=== PATIENT | female | born 1950 | race Caucasian/White ===

== ENCOUNTER → 2016-08-14 13:21 | Outpatient (CLI) | payer MEDICARE, BC ==
[2013-09-16 10:22] VITALS: BMI 45.8
[~2016-08-14 13:21] MED LIST: ALLERGY RELIEF; COZAAR50 MG PO; GLUCOPHAGE500 MG PO; GLUCOTROL 5 MG T5 MG PO; K-DUR20 MEQ PO; LISINOPRIL10 MG PO; LOPID600 MG PO; NEURONTIN 300300 MG PO; NEURONTIN600 MG PO; NORCO 10/325 TA1 TA1 PO; PHENERGAN25 M1 PO; STOOL SOFTENER240 MG; XANAX0.5 MG PO; XELODA500 MG PO
== END | disposition home or self-care (01) ==
LOC: D.CT 13:21
DX: C18.3 Malignant neoplasm of hepatic flexure (principal)

== ENCOUNTER → 2016-11-13 10:09 | Outpatient (CLI) | payer MEDICARE, BC ==
[2013-09-16 10:22] VITALS: BMI 45.8
== END | disposition home or self-care (01) ==
LOC: D.CT 10:09
DX: C18.3 Malignant neoplasm of hepatic flexure (principal); C78.7 Secondary malignant neoplasm of liver and intrahepatic bile duct; D72.819 Decreased white blood cell count, unspecified; D69.6 Thrombocytopenia, unspecified; C78.01 Secondary malignant neoplasm of right lung

== ENCOUNTER 2016-12-01 07:50 | Outpatient (CLI) | payer MEDICARE, BC ==
[~2016-12-01] VITALS: Ht 160 cm; Wt 107.3 kg
[2016-12-01 08:37] LABS: HEMATOCRIT 39.5 % (36.0-48.0); MCH 32.2 pg (26.0-34.0); MCHC 32.9 g/dL (31.0-37.0); MCV 97.8 fL (80.0-100.0); MEAN PLATELET VOLUME 11.7 fL (7.4-10.4); RBC 4.04 10x6/uL (4.00-5.40); RDW 17.3 % (11.5-14.5); WBC 2.7 10x3/uL (4.8-10.8)
[2016-12-01 08:40] LABS: INR 1.11 (0.85-1.17); PLATELET COUNT 58 10x3/uL (130-400); PROTIME 14.2 SECONDS (11.6-15.0)
[2016-12-01 08:41] LABS: APTT 29.1 SECONDS (22.8-39.4)
[2016-12-01 08:43] LABS: CALC OSMOLALITY 290 mosm/kg (275-300); CALCIUM 8.5 mg/dL (8.5-10.1); CARBON DIOXIDE 29.6 mmol/L (21.0-32.0); CHLORIDE - SERUM 109 mmol/L (98-107); CREATININE - SERUM 0.7 mg/dL (0.6-1.3); GLUCOSE 181 mg/dL (74-106); POTASSIUM - SERUM 4.2 mmol/L (3.5-5.1); SODIUM 142 mmol/L (136-145); UREA NITROGEN 20 mg/dL (7-18); eGFR NON AFRICAN AMERICAN 89 mL/min (90-120)
[2016-12-01 08:55] LABS: BASOPHILS 1 % (0-2); LYMPHOCYTES 41 % (15-50); MONOCYTES 4 % (2-11); NEUTROPHILS 54 % (40-80); PLATELET ESTIMATE DECREASED
--- NOTE | 2016-12-01 09:07 | NUR ---
0900-NOTIFIED DR. SIMENTAL ABOUT PLATELET COUNT OF 58, NO NEW ORDERS RECEIVED.
[2016-12-01] MEDS ORDERED: ALDACTONE25 MG PO (09:14)
[2016-12-01] MEDS ORDERED: FUROSEMIDE20 MG PO (09:15)
[2016-12-01] MEDS ORDERED: TIROSINT25 MCG PO (09:16)
[2016-12-01 09:22] VITALS: BP 139/69; Ht 160 cm; Wt 107.3 kg
--- NOTE | 2016-12-01 12:08 | NUR ---
1020--ALL VITAL SIGNS CHARTED ON POST PROCEDURE VITAL SIGN SHEET ON CHART. IVANA HINES
--- NOTE | 2016-12-01 14:12 | NUR ---
1400--IV DC'D, PT UP TO DRESS AT THIS TIME. IVANA HINES
--- NOTE | 2016-12-01 14:33 | NUR ---
1410--DISCHARGE INSTRUCTIONS GIVEN, PT VERBALIZES UNDERSTANDING. PT OFF UNIT VIA ALVIN. IVANA HINES
== END 2016-12-01 14:10 | disposition home or self-care (01) ==
LOC: D.OPS 07:50
PROVIDERS: General Practice
DX: C78.01 Secondary malignant neoplasm of right lung (principal); C19 Malignant neoplasm of rectosigmoid junction; J90 Pleural effusion, not elsewhere classified; Z01.812 Encounter for preprocedural laboratory examination

== ENCOUNTER → 2017-02-05 13:38 | Outpatient (CLI) | payer MEDICARE, BC ==
[2016-12-01 09:22] VITALS: BMI 41.9
[~2017-02-05 13:38] MED LIST changes: +ALDACTONE25 MG PO; +FUROSEMIDE20 MG PO; +TIROSINT25 MCG PO
== END | disposition home or self-care (01) ==
LOC: D.CT 13:38
DX: C78.01 Secondary malignant neoplasm of right lung (principal)

== ENCOUNTER 2017-05-05 21:39 | Inpatient (IN) | payer MEDICARE, BC ==
[~2017-05-05] VITALS: Ht 160 cm; Wt 118.7 kg
--- NOTE | ~2017-05-05 | HEMODYNAMI ---
PATIENT:OLESYA ANDRADE MEDICAL RECORD: [id number] : 54 LOCATION:D.MS Pro2207 ADMISSION DATE: 05/06/17 Generatedon:05/21/201715:28 Patient name: OLESYA ANDRADE Patient #: [id number] SSN: DO B: 1950 Date of study: 05/21/2017 Page: Of Hemodynamic Procedure Report Patient Data Patient Demographics Procedure consent was obtained First Name: OLESYA Gender: Female Last Name: RAYMOND : 1950 Middle Initial: KATERINE Age: 66 year(s) Patient #: [id number] Race: Unknown Additional ID: [id number] Contact details [address]: [address] [place] [address] State: [place] City: [place] Zip code: [address] Past Medical History Allergies: No known allergies Admission Admission Data Admission Date: 05/06/2017 Admission Time: 1:25 Room #: D.2207 Weight (lbs.): 261 Weight (kg.): 118.39 Procedure Procedure Types Cath Procedure Peripheral Cath Diagnostic Procedure Cath Peripheral Miscellaneous Pleurex Pleurex Cath Place w/ Imaging Procedure Description Procedure Date Procedure Date: 05/21/2017 Procedure Start Time: 14:47 Procedure Staff Name Function Julian Kirk MD Performing Physician Samina Matias RN Nurse Roderick Roberts RT Monitor Hannah Arriaza RT Scrub Procedure Data Cath Procedure Fluoroscopy Diagnostic fluoroscopy Total fluoroscopy Time: 0.7 time: 0.7 min min Diagnostic fluoroscopy Total fluoroscopy dose: 24 dose: 24 mGy mGy Procedure Medications Medication Administration Route Dosage Ancef (1Gm/50ml NS) I.V.P.B 2 g Fentanyl I.V. 50 mcg Versed I.V. 1 mg Versed I.V. 1 mg Fentanyl I.V. 50 mcg Hemodynamics Rest Heart Rate: 93 (bpm) Snapshots Pre Cath Intra NCS Post Cath Vital Signs Time Heart Resp SPO2 etCO2 NIBP (mmHg) Rhythm Pain Sedation Rate (ipm) (%) (mmHg) Status Level (bpm) 14:20:49 93 12 99 17.1 124/56(88) NSR 0 (11) 10(A) , No pain 14:25:01 22 96 23.8 108/85(95) NSR 0 (11) 10(A) , No pain 14:29:13 98 26.8 127/62(92) NSR 0 (11) 10(A) , No pain 14:34:12 98 9 19.4 Measuring NSR 0 (11) 10(A) , No pain 14:35:01 95 24 23.1 144/57(118) NSR 0 (11) 10(A) , No pain 14:39:05 86 7 95 24.6 121/107(113) NSR 0 (11) 10(A) , No pain 14:43:19 87 98 11.2 94/37(53) NSR 0 (11) 10(A) , No pain 14:47:31 88 98 27.6 73/34(54) NSR 0 (11) 10(A) , No pain 14:51:37 88 21 23.1 52/35(42) NSR 0 (11) 10(A) , No pain 14:54:58 89 5 29 72/33(56) NSR 0 (11) 10(A) , No pain 14:58:22 3 96 26.8 80/34(69) NSR 0 (11) 10(A) , No pain 15:02:32 88 22 96 31.3 83/34(53) NSR 0 (11) 10(A) , No pain 15:05:06 89 97 29.8 80/34(53) NSR 0 (11) 10(A) , No pain 15:09:14 88 20 97 32.1 84/43(67) NSR 0 (11) 10(A) , No pain 15:13:22 86 20 98 31.3 87/44(62) NSR 0 (11) 10(A) , No pain 15:17:33 85 19 96 34.3 82/39(57) NSR 0 (11) 10(A) , No pain 15:21:44 84 21 98 32.8 88/37(57) NSR 0 (11) 10(A) , No pain 15:25:51 84 21 98 32.1 96/48(69) NSR 0 (11) 10(A) , No pain Medications Time Medication Route Dose Verified Delivered Reason Notes Effectiven ess by by 14:49:43 Ancef I.V.P.B 2 g Julian Haas Per (1Gm/50ml Reagan Matias RN protocol NS) 14:50:22 Fentanyl I.V. 50 [place] Samina [place] [facility] [place] Matias [place] sedation 14:50:35 Versed I.V. 1 mg Julian Samina for Reagan Matias RN sedation 14:53:50 Versed I.V. 1 mg Julian Samina for Reagan Matias RN sedation 14:53:59 Fentanyl I.V. 50 Julian Samina [place] [facility] [place] Matias RN sedation Procedure Log Time Note 13:05:12 Patient Weight : 261 lbs 13:22:39 Time tracking: Regular hours 13:22:54 Plan of Care:Hemodynamics will remain stable., Cardiac rhythm will remain stable., Comfort level will be maintained., Respiratory function will remain adequate., Patient/ family verbilizes understanding of procedure., Procedure tolerated without complication., Recovers from procedure without complications.. 13:23:01 Signed procedure consent form obtained from patient. 13:23:08 H&P Date Dictated: 05/21/2017 Within 30 days and on chart.. 13:23:09 Pre-procedure instructions explained to patient. 13:23:10 Pre-op teaching completed and patient verbalized understanding. 13:23:12 Family in waiting room. 13:23:15 Patient NPO since Midnight. 13:23:27 Patient allergic to No known allergies 13:23:31 Is the patient allergic to Iodine/contrast media? No. 13:23:35 Is patient on blood thinner?No 13:23:39 Patient diabetic? Yes. 13:23:42 If diabetic: On Metformin? Yes 13:23:45 If on Metformin: Last Dose? 05/21/2017 13:23:48 - 13::56 ----Pre-sedation anethsthesia assessment.---- 13:24:00 Previous problem with sedation/anesthesia? No ? 13:24:04 Snore? Yes 13:24:07 Sleep apnea? Yes 13:24:10 Deviated septum? No 13:24:13 Opens mouth fully? Yes 13:24:15 Sticks out tongue? Yes 13:24:20 Airway obstruction? No ? 13:24:25 Dentures? No ? 13:24:28 - 13:24:37 IV patent on arrival in port with 0.9% NaCl at O. 13:24:47 Right chest area was prepped with chlora-prep and draped in sterile fashion 13:24:49 Alarms reviewed by Kathrine Morgan 13:24:50 Sharps counted by scrub and verified by RAnnikaNAnnika 13:24:51 - 13:24:57 Use device set IR Diagnostic 13::58 Sterile Angiographic Pack opened to sterile field. 13:24:59 Bag Decanter opened to sterile field. 13:25:18 PLEURX PLEURAL cath system opened to sterile field. 13:25:25 - 13:44:24 ECG and BP/O2 sat monitors applied to patient. 14:19:37 Vital chart was started 14:19:38 Baseline sample Acquired. 14:19:44 Rhythm: sinus rhythm 14:45:02 Full Disclosure recording started 14:45:16 Physician arrived 14:45:16 --------ALL STOP TIME OUT------ 14:45:17 Final Timeout: patient, procedure, and site verified with staff and physician. All members of the team are in agreement. 14:45:24 Right chest site verified by team. 14:45:29 Sedation plan: IV Moderate Sedation Versed, Fentanyl 14:47:02 Procedure started. 14:47:10 Local anesthetic to Chest area with Lidocaine 1% by Julian Kirk MD.INITIAL ACCESS ONLY 14:49:43 Ancef (1Gm/50ml NS) 2 g I.V.P.B was administered by Samina Matias RN; Per protocol; 14:50:22 Fentanyl 50 mcg I.V. was administered by Samina Matias RN; for sedation ; 14:50:35 Versed 1 mg I.V. was administered by Samina Matias RN; for sedation; 14:53:50 Versed 1 mg I.V. was administered by Samina Matias RN; for sedation; 14:53:59 Fentanyl 50 mcg I.V. was administered by Samina Matias RN; for sedation ; 15:09:04 DILATOR, VESSEL 12/20 opened to sterile field. 15:13:54 STOPCOCK 3-WAY LARGE BORE opened to sterile field. 15:14:40 Dermabond Pen opened to sterile field. 15:21:05 600 cc drained 15:22:59 Procedure ended.(Physican Out) 15:24:29 Fluoroscopy time 00.70 minutes. 15:24:44 Fluoroscopy dose: 24 mGy 15:24:44 Flurop Dose total: 24 15:24:46 Sharps counted by scrub and verified by R.N. 15:24:49 Insertion/operative site no bleeding no hematoma. 15:24:56 Post-op/insertion site Right Chest area dressed using a 4 x 4 and Tegaderm. 15:25:07 Post procedure rhythm: unchanged. 15:25:14 Post Chest area:stable 15:28:09 Post procedure instruction explained to patient.Patient verbalizes understanding. 15:28:10 Procedure and supply charges have been captured, reviewed, submitted an d are correct. 15:28:13 Report given to Med/Surg. 15:28:17 Patient transfered to Med/Surg with Bed. 15:28:40 Vital chart was stopped Device Usage Item Name Manufacture Quantity Catalog Hospital Part Current Minimal Lot# / Number Charge Number Stock Stock Serial# Code Sterile 1 [id number] 5 Angiographic Health Pack Bag Decanter Microtek 1 [id number] [id number] [id number] 5 [employer] PLEURX CareFusion 1 [id number] 5 PLEURAL cath system DILATOR, [employer] 1 [id number] 5 [id number] [facility]ESSEL 07/11 [facility] [employer] 1 [id number] 6301 [id number] 5 [id number] 3-WAY LARGE BORE Dermabond Ethicon 1 [id number] [id number] 5 Pen Signature Audit [place] Stage Time Signature Unsigned Intra-Procedure 05/21/2017 Roderick 3:28:38 PM Alejandra RT (R) (CV) Signatures Monitor : Roderick Signature : Alejandra RT Date : Time : [address] [address]
[2017-05-05 22:41] LABS: BASOPHILS 0.3 % (0-2); EOSINOPHILS 0.6 % (0-7); HEMOGLOBIN 11.3 g/dL (12-16); IMMATURE GRANULOCYTES 0.3 % (0-5); LYMPHOCYTES 19.6 % (15-50); MCH 31.9 pg (26.0-34.0); MCHC 32.3 g/dL (31.0-37.0); MCV 98.9 fL (80.0-100.0); MONOCYTES 9.9 % (2-11); NEUTROPHILS 69.3 % (40-80); RBC 3.54 10x6/uL (4.00-5.40); RDW 18.3 % (11.5-14.5); WBC 3.2 10x3/uL (4.8-10.8)
[2017-05-05 22:42] LABS: PLATELET COUNT 41 10x3/uL (130-400)
[2017-05-05 22:55] LABS: ALBUMIN 2.3 g/dL (3.4-5.0); ANION GAP 12.9 mmol/L (8-16); BILIRUBIN - TOTAL 1.69 mg/dL (0.2-1.3); CALCIUM 8.3 mg/dL (8.5-10.1); CREATININE - SERUM 0.9 mg/dL (0.6-1.3); POTASSIUM - SERUM 3.9 mmol/L (3.5-5.1); PROTEIN - SERUM 6.9 g/dL (6.4-8.2)
[2017-05-05 23:31] LABS: APPEARANCE CLEAR (CLEAR); BILIRUBIN NEGATIVE (NEGATIVE); COLOR YELLOW (YELLOW); GLUCOSE 1000 mg/dL (NEGATIVE); KETONE NEGATIVE (NEGATIVE); NITRITE NEGATIVE (NEGATIVE); PROTEIN NEGATIVE (NEGATIVE); RED CELLS - URINE 0-5 /hpf (0-5); SPECIFIC GRAVITY 1.015 (1.005-1.020); UROBILINOGEN NORMAL (NORMAL); WHITE CELLS - URINE RARE /hpf (0-5)
[2017-05-06] VITALS (25 sets, daily range): BP systolic 91–165; BP diastolic 40–109; BMI 43.5
--- NOTE | 2017-05-06 02:00 | NUR ---
RECEIVED PATIENT FROM ER VIA BED, PATIENT IS SEDATED AND AROUSES TO STIMULI. VSS. SON AT BEDSIDE. VSS. SEE ADMISSION ASSESSMENT FOR DETAILS.
--- NOTE | 2017-05-06 02:15 | NUR ---
DR VEGA CALLED FOR UPDATE ON PATIENT, UPDATE PROVIDED, NEW ORDERS RECEIVED.
--- NOTE | 2017-05-06 03:00 | NUR ---
DERMATOLOGICAL SURGEON NOTIFIED ABOUT NEW ORDERS/MEDS NEEDING PULLED.
--- NOTE | 2017-05-06 04:35 | NUR ---
PATIENT UNABLE TO FOLLOW COMMANDS AND TAKE MEDICATIONS. DROPPED NGT PER ORDER. PLACEMENT VERIFIED WITH AIR BOLUS. PATIENT PULLING AT TUBE, SOFT WRIST RESTRAINTS PLACED. SON BACK AT BEDSIDE AND INFORMED.
[2017-05-06 05:50] LABS: HEMOGLOBIN A1C 8.6 % (4.8-6.0)
[2017-05-06 05:56] LABS: APTT 30.7 SECONDS (22.8-39.4); INR 1.24 (0.85-1.17); PROTIME 15.5 SECONDS (11.6-15.0)
--- NOTE | 2017-05-06 06:00 | NUR ---
PATIENT BECAME TACHYCARDIC, RR 40, 02 SAT 80%, DID NOT IMPROVE WITH INCREASE OF NC, PLACED ON OXYMIZER 10L WITH LITTLE IMROVEMENT. LUNG SOUNDS WET, DR VEGA PAGED, ORDERS FOR LASIX RECEIVED. BLOOD GAS ORDERED.
[2017-05-06 06:06] LABS: T4 THYROXIN - FREE 1.25 ng/dL (0.76-1.46); THYROID STIMULATING HORMONE 9.78 uIU/mL (0.36-3.74)
--- NOTE | 2017-05-06 06:15 | NUR ---
DR VEGA AT BEDSIDE, BLOOD GASES REVEIWED. NEW ORDERS RECEIVED.
--- NOTE | 2017-05-06 07:22 | NUR ---
DR GEORGES CONSULTED.
[2017-05-06 09:33] LABS: ALBUMIN 2.3 g/dL (3.4-5.0); ALKALINE PHOSPHATASE 121 U/L (46-116); ALT (SGPT) 44 U/L (10-68); CALCIUM 7.5 mg/dL (8.5-10.1); CARBON DIOXIDE 23.3 mmol/L (21.0-32.0); CHLORIDE - SERUM 107 mmol/L (98-107); POTASSIUM - SERUM 3.8 mmol/L (3.5-5.1); PROTEIN - SERUM 6.3 g/dL (6.4-8.2); SODIUM 141 mmol/L (136-145)
[2017-05-06 09:37] LABS: CALC OSMOLALITY 284 mosm/kg (275-300); CREATININE - SERUM 0.3 mg/dL (0.6-1.3); GLUCOSE 158 mg/dL (74-106); UREA NITROGEN 15 mg/dL (7-18); eGFR NON AFRICAN AMERICAN > 90 mL/min (90-120)
--- NOTE | 2017-05-06 10:48 | NUR ---
FAMILY IN ROOM AT THIS TIME VISITING WITH DR DAVIS. NO ACUTE DISTRESS NOTED. WILL CONTINUE PLAN OF CARE.
--- NOTE | 2017-05-06 12:02 | HP ---
PATIENT: OLESYA ANDRADE MEDICAL RECORD: [id number] ACCOUNT: [id number] LOCATION:[facility] D.2312 : 54 ADMISSION DATE: 05/06/17 HISTORY AND PHYSICAL EXAMINATION REASON FOR ADMISSION: Confusion, vomiting, diarrhea and general malaise. 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 She had previous ablation of the lung metastases twice, underwent a VATS procedure in 2013 of the right lower lobe. She has been on single agents Cyramza and CEA has declined under Dr. Ba direction. The patient also has a history of CHU and cirrhosis. She become ill 5 days prior to admission with nausea and vomiting. The family attempted to get her to come into the office, but she would not do so. She apparently fell last week and son states she had an MRI of her brain with results pending. Nonetheless, became weaker and came into the Emergency Room early this morning, very confused. Her serum ammonia level returned at over 100. She also had elevated lactate level with concern for sepsis was entertained. Her chest x-ray showed decreased volume in the right lower lobe from previous lower lobectomy, no obvious pneumonia. For that reason, the patient went through the fluid resuscitation for lactic acidosis protocol per Dr. Henderson, was transferred to the ICU. She was hypotensive initially and responded to fluid challenge. At approximately 5:00 a.m., she became tachypneic and anxious and dropped her sats in the 80s; requiring a 15 liter supplementation, reaching to 90% O2 sat range. She was tachycardic as well. The patient was given 40 of Lasix IV push, now diuresing. The family denies any new cough, says she was poorly compliant with her diabetes, but did had some low-grade fever. PAST MEDICAL HISTORY: 1. T3, N1, M0 mucinous adenocarcinoma of the lung, status post left hemicolectomy and right lower lobectomy and lung metastases, history of progression of the right apical lung nodule, CT, July 2015. Currently on treatment with Cyramza. 2. Postmenopausal, type 2 diabetes mellitus, history of ascites, recurrent right pleural effusion post-thoracentesis 2015, drop foot on the right, hypothyroidism, adult obstructive sleep apnea, morbid obesity, splenomegaly, CHU with cirrhosis of liver, portal hypertension, thrombocytopenia, chronic neuropathic pain in the right lower extremity. PAST SURGICAL HISTORY: Right lower lobectomy, cholecystectomy; thoracentesis, right lung; colon resection. HOME MEDICATIONS: Cozaar 50 mg a day, Aldactone 25 mg b.i.d., Lasix 20 mg p.o. q.a.m., levothyroxine 25 mcg p.o. q.a.m., Glucotrol 5 mg daily, metformin 1000 mg b.i.d. with meals. ALLERGIES: None known. SOCIAL HISTORY: , supportive family, living locally. 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 REVIEW OF SYSTEMS: GENERAL: General malaise and low-grade fever for the last 5 days with poor appetite. HISTORY AND PHYSICAL [id number] OLESYA ANDRADE: No recent visual change or sinus congestion, no sore throat. RESPIRATORY: Increasing shortness of breath the last 24 hours, worse on admission to the hospital. No sputum production or cough. CARDIAC: No history of cardiac disease or chest pain. GASTROINTESTINAL: Nausea with vomiting for the last week and intermittent diarrhea without hematemesis or hematochezia. Denies abdominal pain. GENITOURINARY: Has mild incontinence. No dysuria. GYNECOLOGIC: No vaginal bleeding. ENDOCRINE: Denies polyuria. PSYCHIATRIC: Admits to mild depressed mood per family. PHYSICAL EXAMINATION: VITAL SIGNS: Heart rate 135, blood pressure is 160/110, temperature is 99 degrees Fahrenheit, respirations were 37. GENERAL: The patient is disoriented, still in the ICU with NG tube in place, on supplemental O2 with sat of 90%, currently on 15 liters. HEENT: Eyes are clear, nonicteric. Pupils were reactive. Oropharynx was dry mucous membranes. NG tube is in the nose. CHEST: Shows crackles in the bases with increased respiratory rate. No wheezes. HEART: Tachycardic. ABDOMEN: Morbidly obese, but nontender. EXTREMITIES: 2+ bipedal and pretibial edema of the knees bilaterally. NEUROLOGICAL: The patient is disoriented to person, place, and time. No motor deficits are appreciated. INTEGUMENT: No rash. LABORATORY DATA: Shows a white count of 3200 with 69 polys, 19 lymphs, H&H is 11.3 and 35.0 respectively, platelet count of 41,000. Potassium is 3.9, sodium 134, BUN and creatinine 10 and 0.9. Glucose was 440 initially, now 177 post-insulin. A1c is 8.6, lactic acid is 2.3. Calcium was 8.3, magnesium 1.8, phosphorus low at 1.8. Ammonia 109, alkaline phosphatase 177. AST is 51, bilirubin is 1.69. TSH is high at 9.78. CEA is 6.5. DIAGNOSTIC DATA: Chest x-ray shows volume loss in the right base, difficult to assess due to body habitus. No infiltrate is appreciated. ABG shows pH of 7.381, pO2 is 66, pCO2 of 34 on 15 liters oxymizer. Urine shows 2+ blood. INR is 1.24. Serum ketones were negative. ASSESSMENT: 1. Lactic acidosis. 2. 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 Diabetes mellitus, uncontrolled; morbid obesity, obstructive sleep apnea, respiratory failure due to fluid overload. PLAN: The patient has responded nicely to IV Lasix currently, sat are improving 96% range. Follow up chest x-ray does not show acute infiltrate at this time. Continue ICU care, NG tube for lactulose. We will consult her oncologist, Dr. Ba and pulmonary consult as well. Further workup pending clinical course. TRANSINT:[id number] Voice Confirmation ID: [id number] DOCUMENT ID: [id number] HISTORY AND PHYSICAL [id number] OLESYA ANDRADE TIMOTHY MD at 1202 CC: [id number] DICTATION DATE: 05/06/17 08 PLASTIC SURGERY MANAGER: 05/06/17 1007 ADM IN [facility] [address] [place] [address]
--- NOTE | 2017-05-06 12:43 | NUR ---
NO ACUTE DISTRESS NOTED. NO CHANGE. FAMILY AT BEDSIDE. WILL CONTINUE PLAN OF CARE.
[2017-05-06 13:24] LABS: APTT 31.9 SECONDS (22.8-39.4); INR 1.32 (0.85-1.17); PROTIME 16.3 SECONDS (11.6-15.0)
--- NOTE | 2017-05-06 14:42 | NUR ---
PT NOTED TO BE MORE COHERENT. PT STILL CONFUSED TO TIME AND SITUATION BUT PT IS ABLE TO STATE NAME AND TOWN AT THIS TIME. NO ACUTE DISTRESS NOTED. REORIENTATION PROVIDED. TURNED Q2H. WILL CONTINUE PLAN FO CARE.
--- NOTE | 2017-05-06 15:10 | NUR ---
NOTED LARGE FORMED BOWEL MOVEMENT, CONTINENT, AT THIS TIME. PATTY CARE AND NEVES CARE PROVIDED VIA TOTAL ASSIST. NO ACUTE DISTRESS NOTED. WILL CONTINUE PLAN OF CARE.
--- NOTE | 2017-05-06 16:03 | NUR ---
CONSULTS NOTED FOR DR DONOHUE AND DR PANDYA. DR PANDYA NOTIFIED OF CONSULT, ORDERS RECIEVED. DR GARCÍA PAGED AT THIS TIME. WAITING FOR CALLBACK.
--- NOTE | 2017-05-06 17:05 | NUR ---
SPOKEN WITH DR DONOHUE, NOTIFIED OF CONSULT. NO ORDERS RECIEVED.
--- NOTE | 2017-05-06 18:44 | NUR ---
AMMONIA LEVEL OF [address] PANDYA NOTIFIED AND HAS PLACED ORDERS.
--- NOTE | 2017-05-06 19:15 | NUR ---
ASSESSMENT COMPLETE. NSR SHOWING ON MONITOR. RR WHEEZE NOTED BILATERALLY IN UPPER LOBES; DIMINISHED BILATERALLY IN LOWER LOBES. PT CONFUSED TO TIME AND LOCATION. NGT TO LIS. RESTRAINTS UNDONE; PT BEHAVIOR CALM; APPROPRIATE. PERRLA. HYPERACTIVE BOWEL SOUNDS X4. FLATULANCE NOTED. DENIES N/V.
--- NOTE | 2017-05-06 20:00 | NUR ---
FAMILY AT BEDSIDE. UPDATE GIVEN. QUESTIONS ANSWERED.
--- NOTE | 2017-05-06 23:10 | NUR ---
REASSESSMENT COMPLETE. NO ACUTE CHANGES FROM PREVIOUS ASSESSMENT. DOCUMENTED UNDER ASSESSMENT. WILL CONTINUE TO MONITOR.
[2017-05-07] VITALS (24 sets, daily range): BP systolic 95–137; BP diastolic 32–79; Ht 160 cm; Wt 118.7 kg
--- NOTE | 2017-05-07 01:30 | NUR ---
PT RESTING; EYES CLOSED. VSS. NO DISTRESS NOTED. CALL LIGHT IN REACH. WILL CONTINUE TO MONITOR.
--- NOTE | 2017-05-07 02:45 | NUR ---
PT ASSISTED TO BEDPAN. SMEAR OF FECES. UNABLE TO COLLECT SAMPLE. PT CLEANED. COMPLETE LINEN CHANGE. NEVES CATH LEAKING; CHECKED BULB; 8CC WATER. 2CC ADDED. NEVES CARE COMPLETE.
--- NOTE | 2017-05-07 03:08 | NUR ---
REASSESSMENT COMPLETE. NO ACUTE CHANGES FROM PREVIOUS ASSESSMENT. SEE FLOW SHEET FOR DETAILS. CALL LIGHT IN REACH. WILL CONTINUE TO MONITOR.
[2017-05-07 04:20] LABS: BASOPHILS 0.2 % (0-2); EOSINOPHILS 0.2 % (0-7); HEMATOCRIT 32.6 % (36.0-48.0); HEMOGLOBIN 10.2 g/dL (12-16); IMMATURE GRANULOCYTES 0.3 % (0-5); LYMPHOCYTES 8.9 % (15-50); MCH 31.6 pg (26.0-34.0); MCHC 31.3 g/dL (31.0-37.0); MCV 100.9 fL (80.0-100.0); MONOCYTES 7.8 % (2-11); NEUTROPHILS 82.6 % (40-80); RBC 3.23 10x6/uL (4.00-5.40); RDW 19.4 % (11.5-14.5); WBC 6.6 10x3/uL (4.8-10.8)
[2017-05-07 04:22] LABS: PLATELET COUNT 30 10x3/uL (130-400)
[2017-05-07 04:30] LABS: INR 1.45 (0.85-1.17); PROTIME 17.6 SECONDS (11.6-15.0)
[2017-05-07 04:43] LABS: ALBUMIN 1.9 g/dL (3.4-5.0); ANION GAP 12.8 mmol/L (8-16); BILIRUBIN - TOTAL 1.96 mg/dL (0.2-1.3); CALCIUM 7.1 mg/dL (8.5-10.1); CHOL - HDL RATIO 2.6 ratio (2.3-4.1); LDL-HDL RATIO 1.3 ratio (1.5-3.5); MAGNESIUM - SERUM 1.5 mg/dL (1.8-2.4); PHOSPHOROUS 4.2 mg/dL (2.5-4.9); POTASSIUM - SERUM 3.8 mmol/L (3.5-5.1); PROTEIN - SERUM 5.7 g/dL (6.4-8.2)
[2017-05-07 04:45] LABS: CREATININE - SERUM 1.4 mg/dL (0.6-1.3)
[2017-05-07 04:49] LABS: D-DIMER-QUANTITATIVE 11.12 ug/mLFEU (0.20-0.54)
--- NOTE | 2017-05-07 05:06 | NUR ---
FAMILY AT BEDSIDE. UPDATE GIVEN. QUESTIONS ANSWERED.
--- NOTE | 2017-05-07 05:40 | NUR ---
DECREASED OXYMIZER TO 10L. O2 SAT 96%
--- NOTE | 2017-05-07 08:27 | NUR ---
LINENS WET WITH URINE. LINENS CHANGED AND CHECKED FC FOR PATENCY. CT CONTRAST TAKEN BY MOUTH. DR VEGA HERE ON ROUNDS. O2 2L NC APPLIED. PT C/O OXYMIZER.
--- NOTE | 2017-05-07 15:24 | NUR ---
* How many steps to enter\exit or inside your home? 2 0 * PCP Dr. Anne 0 * Pharmacy [facility] [address] 0 * Preadmission Environment Home with Family 0 * ADLs Independent 0 * Equipment CPAP Glucometer Rolling Walker Wheelchair 0 * List name and contact numbers for known caregivers / representatives who currently or will assist patient after discharge: Spouse - Los [phone] Son - Nik (RN @ [employer]) [phone] Son- Gm [phone] ROGERS Bae (RN at [employer]') [phone] Sister - Carolyn Hernandez [phone] 0 * Can the patient safely return to the preadmission environment? Yes 0 * Has this patient been hospitalized within the prior 30 days at any hospital? No Patient Name: OLESYA ANDRADE Admission Status: Elective Accout number: [id number] Admission Date: 05-06-2017 : 1950 Admission Diagnosis: Attending: RM ANNE Current LOS: 1 Primary Insurance: MEDICARE A & B Discharge Planning Comments: CM met with spouse, Los & sisterCarolyn, to assess dc plans/needs. Los reports patient was independent with all ADL's prior to admission. She will use a WC when going on shopping trips to craft fairs, but otherwise is independent with mobility. She has a walker at home & a home CPAP but doesn't use either. At dc, plan is for patient to return home. Needs unknown at present time. CM will follow & assist as needed. Vocational Guidance Counselor: Loraine Tan
--- NOTE | 2017-05-07 15:45 | NUR ---
PT INC OF STOOL. STOOL TAKEN TO LAB. BATHED AND LINENS CHANGED.
--- NOTE | 2017-05-07 19:15 | NUR ---
ASSESSMENT COMPLETE. S1S2. NSR SHOWING ON MONITOR. PT ON 2L VIA NC; O2 SAT 96%. ENTERIC ISOLATION PRECAUTIONS. RADIAL AND PEDAL PULSES PALPATED. TRACE EDEMA NOTED TO LOWER EXTREMITIES. CONFUSION NOTED. PT ABLE TO MAKE POSITION CHANGES WITH MINIMAL ASSISTANCE. PERRLA. ABD ROUNDED; TENDER. HYPERACTIVE BOWEL SOUNDS X4.
--- NOTE | 2017-05-07 19:50 | NUR ---
PT REMOVED NASAL CANNULA; 02 SAT DECREASED INTO LOW 70'S. REATTACHED NC; O2 SAT RETURNED WNL. EDUCATED PT ON RISKS OF REMOVING NC.
--- NOTE | 2017-05-07 20:30 | NUR ---
FAMILY AT BEDSIDE. UPDATE GIVEN. QUESTIONS ANSWERED.
--- NOTE | 2017-05-07 22:45 | NUR ---
PT HAD MODERATE BM; DIARRHEA. PT CLEANED; LINENS CHANGED. NEW GOWN PROVIDED.
--- NOTE | 2017-05-07 23:10 | NUR ---
REASSESSMENT COMPLETE. NO ACUTE CHANGES FROM PREVIOUS ASSESSMENT. WILL CONTINUE TO MONITOR.
[2017-05-08] VITALS (24 sets, daily range): BP systolic 100–132; BP diastolic 37–66
--- NOTE | 2017-05-08 00:27 | NUR ---
SPOKE WITH FAMILY. UPDATE GIVEN. QUESTIONS ANSWERED.
--- NOTE | 2017-05-08 03:30 | NUR ---
REASSESSMENT COMPLETE. NO ACUTE CHANGES FROM PREVIOUS ASSESSMENT. WILL CONTINUE TO MONITOR.
--- NOTE | 2017-05-08 03:55 | NUR ---
PT HAD MEDIUM BM; LIQUID DIARRHEA. PT CLEANED; LINENS CHANGED.
[2017-05-08 04:42] LABS: BASOPHILS 0.3 % (0-2); EOSINOPHILS 1.2 % (0-7); HEMATOCRIT 31.1 % (36.0-48.0); HEMOGLOBIN 9.9 g/dL (12-16); IMMATURE GRANULOCYTES 0.3 % (0-5); LYMPHOCYTES 19.4 % (15-50); MCH 31.7 pg (26.0-34.0); MCHC 31.8 g/dL (31.0-37.0); MCV 99.7 fL (80.0-100.0); MONOCYTES 16.1 % (2-11); NEUTROPHILS 62.7 % (40-80); RBC 3.12 10x6/uL (4.00-5.40); RDW 19.4 % (11.5-14.5)
[2017-05-08 04:43] LABS: WBC 3.4 10x3/uL (4.8-10.8)
[2017-05-08 04:44] LABS: PLATELET COUNT 27 10x3/uL (130-400)
[2017-05-08 04:56] LABS: ALBUMIN 1.8 g/dL (3.4-5.0); ANION GAP 13.6 mmol/L (8-16); BILIRUBIN - DIRECT 0.61 mg/dL (0.00-0.30); BILIRUBIN - INDIRECT 0.89 mg/dL (0.00-1.00); BILIRUBIN - TOTAL 1.5 mg/dL (0.2-1.3); CARBON DIOXIDE 23.9 mmol/L (21.0-32.0); POTASSIUM - SERUM 3.5 mmol/L (3.5-5.1); PROTEIN - SERUM 5.2 g/dL (6.4-8.2)
[2017-05-08 04:59] LABS: APTT 35.8 SECONDS (22.8-39.4); CALCIUM 6.8 mg/dL (8.5-10.1); INR 1.32 (0.85-1.17); PROTIME 16.3 SECONDS (11.6-15.0)
--- NOTE | 2017-05-08 05:45 | NUR ---
NO FAMILY/VISITORS DURING VISITATION.
--- NOTE | 2017-05-08 06:29 | NUR ---
PT AAO. CONCENT FOR CT GUIDED THORACENTESIS OBTAINED.
--- NOTE | 2017-05-08 08:10 | NUR ---
I.R. NURSE HERE THIS AM, PT IS NPO FOR THORACENTESIS. DR VEGA HERE AND DR PANDYA HERE THIS AM. DR VEGA SPOKE TO FAMILY THIS AM. T&CM FOR PLTS THIS AM DONE.
--- NOTE | 2017-05-08 19:15 | NUR ---
REPORT RECEIVED AND CARE ASSUMED. INITIAL SHIFT ASSESSMENT COMPLETED SEE FLOWSHEET. PT ABLE TO ASSIST WITH TURNING AND REPOSITIONING. IVF AND LINES ARE LABELED AND ARE CURRENT. WILL CHANGE PER HOSPITAL POLICY. ALL ALARMS VERIFIED AND SET. PT IS AAOX4 NEURO STATUS INTACT
--- NOTE | 2017-05-08 20:00 | NUR ---
SPOUSE AT BEDSIDE VISITIN FREELY WITH PT
--- NOTE | 2017-05-08 21:45 | NUR ---
HS MEDS GIVEN WITHOUT DIFFICULTY IN SWALLOWING. PT REFUSED LACTULOSE VERBALIZED GOOD UNDERSTANDING OF INDICATIONS FOR MEDICATION AND CONT TO REFUSE. MEDS RETURNED. HS SNACK PROVIDED.
--- NOTE | 2017-05-08 22:41 | NUR ---
rapid strep sample collected and sent for analysis
--- NOTE | 2017-05-08 23:01 | NUR ---
STREP RESULTS REVIEWED AND PT NOTIFIED, SHIFT REASSESSMENT COMPLETED WITH NO SIGNIFICANT CHANGES
[2017-05-09] VITALS (24 sets, daily range): BP systolic 110–1328; BP diastolic 52–81
--- NOTE | 2017-05-09 01:00 | NUR ---
PT SLEEPING RESP REG AND NONLABORED AT THIS TIME. VSS
--- NOTE | 2017-05-09 03:00 | NUR ---
SHIFT REASSESSMENT COMPLETED NOTE SOME INSPIRATORY WHEEZING IN LEFT UPPER LOBE. PT AWAKE SAT UP IN BED AND THEN LINENS CHANGED AND PT TOTALLY REPOSITIONED IN AN EFFORT TO MAKE HER MORE COMFORTABLE. PT STATES SHE FELT MUCH BETTER AND PROMPTLY WENT TO SLEEP. SPO2 REMAINED UNCHANGED. VSS
--- NOTE | 2017-05-09 03:30 | NUR ---
RADIOLOGY TECHS AT BEDSIDE FOR AM PCXR. PT TOLERATED WELL
[2017-05-09 04:49] LABS: BASOPHILS 0 % (0-2); EOSINOPHILS 2.3 % (0-7); HEMATOCRIT 31.7 % (36.0-48.0); HEMOGLOBIN 9.9 g/dL (12-16); IMMATURE GRANULOCYTES 0.3 % (0-5); LYMPHOCYTES 29.4 % (15-50); MCH 30.9 pg (26.0-34.0); MCHC 31.2 g/dL (31.0-37.0); MCV 99.1 fL (80.0-100.0); MEAN PLATELET VOLUME 11.2 fL (7.4-10.4); MONOCYTES 12.5 % (2-11); NEUTROPHILS 55.5 % (40-80); RDW 19.2 % (11.5-14.5)
[2017-05-09 04:50] LABS: PLATELET COUNT 33 10x3/uL (130-400)
[2017-05-09 04:56] LABS: INR 1.22 (0.85-1.17); PROTIME 15.3 SECONDS (11.6-15.0)
[2017-05-09 05:03] LABS: ALBUMIN 1.8 g/dL (3.4-5.0); ALKALINE PHOSPHATASE 64 U/L (46-116); ALT (SGPT) 31 U/L (10-68); BILIRUBIN - DIRECT 0.42 mg/dL (0.00-0.30); BILIRUBIN - INDIRECT 0.68 mg/dL (0.00-1.00); CALC OSMOLALITY 285 mosm/kg (275-300); CARBON DIOXIDE 24.4 mmol/L (21.0-32.0); CHLORIDE - SERUM 108 mmol/L (98-107); CREATININE - SERUM 0.8 mg/dL (0.6-1.3); GLUCOSE 161 mg/dL (74-106); POTASSIUM - SERUM 3.3 mmol/L (3.5-5.1); PROTEIN - SERUM 5.3 g/dL (6.4-8.2); SODIUM 140 mmol/L (136-145); UREA NITROGEN 24 mg/dL (7-18); eGFR NON AFRICAN AMERICAN 76 mL/min (90-120)
[2017-05-09 05:04] LABS: CALCIUM 6.8 mg/dL (8.5-10.1)
--- NOTE | 2017-05-09 05:30 | NUR ---
K+ 3.3 PT GIVEN ORAL K+ PER ORDER. TOLERATED WELL FOLLOWING ELECROLYTE PROTOCOL. REPEAT K+ AT 10:45AM ORDER ENTERED
--- NOTE | 2017-05-09 06:07 | NUR ---
PT ASLEEP AT THIS TIME. HAS BEEN AWAKE FOR A COUPLE OF HOURS BUT SLEPT VERY WELL FOR SEVERAL HOURS EASILY AWAKING AND QUICKLY RETURNING TO SLEEP THIS SHIFT
--- NOTE | 2017-05-09 14:36 | NUR ---
NUTRITION F/U CHART REVIEWED. PT ON ADA DIET, TOLERATING PER MD NOTE. +DIARRHEA. NOTE POSSIBLE MOVE TO FLOOR. RD FOLLOWING
--- NOTE | 2017-05-09 16:11 | NUR ---
CONSENT FOR COMPUTERIZED TOMOGRAPHY RIGHT THORCENTESIS SIGNED BY AT Pt REQUEST QUESTIONS ANSWERED. EXPLAINED PROCEDURE TO SON ON PHONE AND DR. VEGA NOTIFIED OF PROCEDURE.
--- NOTE | 2017-05-09 18:40 | NUR ---
PATIENT UP TO CHAIR AND BSC, BECOMES VERY SHORT OF BREATH WITH WHEEZING, IMPROVES AFTER 30 MIN DESATS INTO UPPER 80% INCREASED OXYGEN TO 3 LITERS THEN TURN IT BACK DOWN TO 2 LITERS AFTER PULSE OX UP IN THE 'S. SEVERAL SMALL LIQUID BROWN STOOLS TODAY. NEVES CATH SECURE TO RIGHT LEG DRAINING DARK TESSIE URINE. IV RIGHT INFUSA PORT SITE WITHOUT REDNESS OR DRAINAGE INFUSING NS AT 75 ML HOUR. ABD LARGE SOFT WITH BOWEL SOUNDS PRESENT. DIMINSHED LUNG SOUNDS RIGHT SIDE
--- NOTE | 2017-05-09 19:30 | NUR ---
Report received and care assumed. Initial shift assessment completed see flowsheet. Pt asleep upon entering room easily awaken. Denies pain, needs. IVF and lines are labeled and dated. All are current. Alarms verified and set.
--- NOTE | 2017-05-09 20:00 | NUR ---
Family at bedside questions answered update given. discussed thoracentesis scheduled for 05/10/17
--- NOTE | 2017-05-09 21:00 | NUR ---
Pt refused lactulose. Family at bedside and aware of this
--- NOTE | 2017-05-09 22:30 | NUR ---
pt up to bsc note gait steady only stand by assist required
--- NOTE | 2017-05-09 23:45 | NUR ---
PT ASSISTED BACK TO BED GAIT STEADY CONTINENT OF SMALL LOOSE STOOL. PATTY CARE AND F/C CARE DONE. PT REQUIRES ASSISTANCE WITH REPOSTIONING HIGHER IN BED DUE TO ACTIVITY INTOLERANCE BUT IS ABLE TO TURN SELF AND DO MAJOR BODY REPOSTIONING. CONTINUE TO MONITOR PER STANDARD ICU PROTOCOL
--- NOTE | 2017-05-09 23:53 | NUR ---
PT NPO AT THIS TIME FOR PROCEDURE, SIGN ON DOOR
[2017-05-10] VITALS (25 sets, daily range): BP systolic 86–156; BP diastolic 56–102
--- NOTE | 2017-05-10 01:00 | NUR ---
Patient sitting up on side of bed, c/o dyspnea. O2 sat 94% on 2L via NC, scattered wheeze noted bilateral upper with diminished mid and lower. Patient denies pain or other needs at this time, all VSS and will continue to monitor.
--- NOTE | 2017-05-10 03:05 | NUR ---
Reassessment completed per flowsheet, patient resting with HOB @ 45 degrees and eyes closed. Patient AO x4, calm and cooperative. S1/S2 noted NSR on telemetry with HR 85, rhythmic and regular. Breathing is slightly shallow with dyspnea on exertion with O2 sat 96%, scattered wheeze noted bilateral upper with diminished mid and lower. Full ROM all extremities with weakness noted, all pulses palpable with cap refill < 3 sec. No further needs at this time, all VSS and will continue to monitor.
[2017-05-10 04:31] LABS: BASOPHILS 0 % (0-2); EOSINOPHILS 2.8 % (0-7); HEMATOCRIT 34.2 % (36.0-48.0); HEMOGLOBIN 11.1 g/dL (12-16); IMMATURE GRANULOCYTES 0.3 % (0-5); LYMPHOCYTES 27.5 % (15-50); MCH 31.9 pg (26.0-34.0); MCHC 32.5 g/dL (31.0-37.0); MCV 98.3 fL (80.0-100.0); MONOCYTES 10.7 % (2-11); NEUTROPHILS 58.7 % (40-80); RBC 3.48 10x6/uL (4.00-5.40); RDW 19.1 % (11.5-14.5); WBC 3.3 10x3/uL (4.8-10.8)
[2017-05-10 04:33] LABS: PLATELET COUNT 35 10x3/uL (130-400)
[2017-05-10 04:48] LABS: INR 1.18 (0.85-1.17); PROTIME 14.9 SECONDS (11.6-15.0)
[2017-05-10 04:55] LABS: ALBUMIN 2.1 g/dL (3.4-5.0); ALKALINE PHOSPHATASE 76 U/L (46-116); ALT (SGPT) 33 U/L (10-68); BILIRUBIN - DIRECT 0.46 mg/dL (0.00-0.30); BILIRUBIN - INDIRECT 0.84 mg/dL (0.00-1.00); CALC OSMOLALITY 283 mosm/kg (275-300); CALCIUM 7.4 mg/dL (8.5-10.1); CARBON DIOXIDE 22.9 mmol/L (21.0-32.0); CHLORIDE - SERUM 108 mmol/L (98-107); CREATININE - SERUM 0.7 mg/dL (0.6-1.3); GLUCOSE 187 mg/dL (74-106); POTASSIUM - SERUM 3.4 mmol/L (3.5-5.1); PROTEIN - SERUM 5.9 g/dL (6.4-8.2); SODIUM 139 mmol/L (136-145); eGFR NON AFRICAN AMERICAN 89 mL/min (90-120)
--- NOTE | 2017-05-10 05:00 | NUR ---
AM labs collected without difficulty, K+ replacement initiated. No c/o at this time, all VSS and will continue to monitor.
[2017-05-10 05:02] LABS: UREA NITROGEN 16 mg/dL (7-18)
--- NOTE | 2017-05-10 07:00 | NUR ---
REC'D CARE OF PT. A&O X3. DENIES NEEDS. DENIES PAIN. C/O SOB. DISCUSSED SCHEDULED THORANCENTESIS. TEACHING DONE ABOUT EXPECTED RESULTS.
--- NOTE | 2017-05-10 08:27 | NUR ---
FAMILY AT BEDSIDE. UPDATED.
--- NOTE | 2017-05-10 10:33 | NUR ---
REASSESSMENT COMPLETED PER FLOW SHEET.
--- NOTE | 2017-05-10 10:50 | NUR ---
INCONTINENT OF STOOL. SMALL BROWN SEMIFORMED STOOL. PERICARE PERFORMED. LINENS CHANGED.
--- NOTE | 2017-05-10 10:50 | NUR ---
YAZAN WITH PT GETTING OOB TO CHAIR.
--- NOTE | 2017-05-10 11:04 | NUR ---
UP IN CHAIR. DENIES NEEDS.
--- NOTE | 2017-05-10 12:38 | CN ---
PATIENT NAME:OLESYA NG MEDICAL RECORD: [id number] : 54 LOCATION:[facility] ADMIT DATE: 05/06/17 ACCOUNT: [id number] CONSULTING PHYSICIAN: KAMI NGUYEN MD REFERRING PHYSICIAN: RM VEGA MD DATE OF CONSULTATION: 05/09/2017 DIAGNOSES: 1. Sepsis. 2. Metastatic cancer. HISTORY OF PRESENT ILLNESS: Ms. Ng presents with sepsis syndrome. We were asked to see her regarding possible endocarditis. She had a 2D echo done. Valvular structures are very well visualized. There is no evidence of valvular abnormalities or endocarditis on 2D echo. PHYSICAL EXAMINATION: GENERAL APPEARANCE: Well-nourished, well-developed, appears stated age. Level of distress, comfortable. PSYCHIATRIC: Mental status, alert, normal affect. Orientation, oriented to time, place and person. EYES: Lids and conjunctiva, noninjected. No discharge, no pallor. ENT: Lips, teeth, gums, normal dentition. Oropharynx, no cyanosis, no pallor. NECK: Carotid arteries, bilateral normal upstroke, no bruits, no thrills. JUGULAR VEINS: No jugular venous pressure or distention. CERVICAL LYMPH NODES: Nontender, nonenlarged. THYROID: Not enlarged. Nontender. No nodules. LUNGS: Respiratory effort, unlabored. CHEST: Normal curvature. No thoracic deformity. No chest wall tenderness. Percussion, resonant. Auscultation, clear. No wheezes, no rales, no rhonchi. CARDIOVASCULAR: Precordial exam, nondisplaced. No heaves or pericardial thrills. Rate and rhythm, regular. Heart sounds, normal S1, normal S2. No S3, no gallop, no rub. Systolic murmur, not heard. Diastolic murmur, not heard. EXTREMITIES: No cyanosis, no edema. Peripheral pulses, full and equal in all extremities, except as noted. No bruits appreciated. ABDOMEN: Soft, nondistended. Normal aorta. No bruit. Nontender. No masses. Liver, nontender, no hepatomegaly. Spleen, nontender, no splenomegaly. MUSCULOSKELETAL: No joint tenderness. No joint swelling. No erythema. NEUROLOGICAL: Normal gait, normal strength, normal tone. SKIN: Warm and dry. REVIEW OF SYSTEMS: The patient reports easy bruising but reports no swollen glands. The patient reports no fever, no night sweats, no significant weight gain, no significant weight loss. No significant exercise tolerance. The patient reports no dry eyes, no irritation, no vision change. Patient reports no difficulty hearing and no ear pain. Patient reports no frequent nose bleeds or nose and sinus problems. Patient reports on arm pain on exertion. No shortness of breath while lying down. No history of heart murmur. Patient reports no cough, no wheezing or coughing up blood. Patient reports no abdominal pain, no vomiting. Normal appetite. No diarrhea and not vomiting blood. No nausea and no constipation. Patient reports no incontinence. No difficulty urinating. No hematuria. No increased frequency. Patient reports no muscle aches. No weakness, no arthralgias, no back pain. No swelling of the extremities. Patient reports no abnormal mole, no jaundice, no rashes. Reports no loss of consciousness. No weakness and no numbness. No seizures, dizziness, CONSULT REPORT [id number] VINCENT,OLESYA KATERINE or headaches. The patient reports no depression, no sleep disturbance, feeling safe in a relationship and no alcohol abuse. Patient reports on fatigue. Reports no runny nose or sinus pressure. No itching, no hives, and no frequent sneezing. OVERALL IMPRESSION: On 2D echo, excellent visualization of the valves. There is no evidence of endocarditis. Do not think transesophageal echo is needed at this point. TRANSINT:[id number] Voice Confirmation ID: [id number] DOCUMENT ID: [id number] KAMI NGUYEN MD at 1238 CC: [id number] DICTATION DATE: 05/09/17 110 SURPLUS PROPERTY DISPOSAL AGENT: 05/09/17 1223 [facility] [place] [id number] [place] [id number]
--- NOTE | 2017-05-10 14:05 | NUR ---
REMAINS UP TO CHAIR. HELPING WITH BATH AT HER REQUEST.
--- NOTE | 2017-05-10 14:28 | NUR ---
SITTING ON SOB. DENIES NEEDS.
--- NOTE | 2017-05-10 14:53 | NUR ---
FROM SOB TO BEDSIDE COMMODE.
--- NOTE | 2017-05-10 15:15 | NUR ---
FROM BEDSIDE COMMODE TO BED. HAD SMALL BROWN SEMIFORMED STOOL. PERICARE PERFORMED BY HER .
--- NOTE | 2017-05-10 16:36 | NUR ---
REMIANS AT BEDSIDE ASSISTING WITH TRAY.
--- NOTE | 2017-05-10 17:39 | NUR ---
RESTING WITH EYES CLOSED. VSS.
--- NOTE | 2017-05-10 19:10 | NUR ---
Received patient resting in bed with eys open, assessment completed per flowsheet. Patient AO x4, calm and cooperative. Eyes PERRLA @ 4mm with brisk response, sclera is white. S1/S2 noted NSR on telemetry with HR 91, rhythmic and regular. Breathing is slightly shallow with exertional dyspnea on 2L via NC with O2 sat 96%, expiratory wheeze noted bilateral upper and mid with diminished lower. Abdomen is obese and soft with bowel sounds active x4, non-tender. James secured in place, slight flavio urine noted. Full ROM all extremities with trace swelling/weakness noted, all pulses palpable with cap refill < 3 sec. R upper chest infusaport dressing CDI, patent with fluids infusing. Patient denies pain or other needs at this time, all VSS and will continue to monitor.
--- NOTE | 2017-05-10 21:00 | NUR ---
Patient sitting up in bed with at bedside, all HS meds given without difficulty. Dr Ba at [facility], orders given to transfuse 1 unit platelets at 0100 10 and recheck with AM labs. Orders verified, will continue to monitor.
--- NOTE | 2017-05-10 23:05 | NUR ---
Reassessment completed per flowsheet, patient sitting up in bed resting with eyes closed. S1/S2 noted NSR on telemetry with HR 92, rhytmic and regular. Breathing is shallow with exertional dyspnea and O2 sat 96%, expiratory wheeze noted bilateral upper and mid with diminished lower. All pulses palpable with cap refill < 3 sec, skin warm/dry to touch. patient denies pain or other needs at this time, all VSS and will continue to monitor.
[2017-05-11] VITALS (28 sets, daily range): BP systolic 105–158; BP diastolic 8–75
--- NOTE | 2017-05-11 01:00 | NUR ---
Patient resting in bed with eyes closed, breathing is slightly shallow on 2L via NC with O2 sat 97%. No s/s of distress, no pain or other needs at this time. Will continue to monitor
--- NOTE | 2017-05-11 02:00 | NUR ---
1 unit platelets infusing per verbal orders from Dr Ba. Will recheck with AM labs, and give 2nd unit if < [address] Granda.
--- NOTE | 2017-05-11 03:00 | NUR ---
Reassessment completed per flowsheet, patient sitting up in bed with eyes closed. Patient AO x4, calm and cooperative. S1/S2 noted NSR on telemetry with HR 88, rhythmic and regular. Breathing is slightly shallow with exertional dyspnea and O2 sat 95%, wheeze noted bilateral upper and mid with diminished lower. All pulses palpable with cap refill < 3 sec, skin warm/dry to touch. no further needs at this time, all VSS and will continue to monitor.
[2017-05-11 04:16] LABS: BASOPHILS 0.3 % (0-2); EOSINOPHILS 2.9 % (0-7); HEMATOCRIT 33.5 % (36.0-48.0); HEMOGLOBIN 10.6 g/dL (12-16); IMMATURE GRANULOCYTES 0.3 % (0-5); LYMPHOCYTES 31.6 % (15-50); MCH 31.2 pg (26.0-34.0); MCHC 31.6 g/dL (31.0-37.0); MCV 98.5 fL (80.0-100.0); MEAN PLATELET VOLUME 10.7 fL (7.4-10.4); MONOCYTES 10.5 % (2-11); NEUTROPHILS 54.4 % (40-80); PLATELET COUNT 60 10x3/uL (130-400); RDW 18.9 % (11.5-14.5); WBC 3.8 10x3/uL (4.8-10.8)
[2017-05-11 04:30] LABS: ALBUMIN 2.1 g/dL (3.4-5.0); ALKALINE PHOSPHATASE 85 U/L (46-116); ALT (SGPT) 27 U/L (10-68); BILIRUBIN - TOTAL 1.41 mg/dL (0.2-1.3); CALC OSMOLALITY 288 mosm/kg (275-300); CALCIUM 7.5 mg/dL (8.5-10.1); CARBON DIOXIDE 25.6 mmol/L (21.0-32.0); CHLORIDE - SERUM 110 mmol/L (98-107); CREATININE - SERUM 0.6 mg/dL (0.6-1.3); GLUCOSE 164 mg/dL (74-106); POTASSIUM - SERUM 3.5 mmol/L (3.5-5.1); PROTEIN - SERUM 6.3 g/dL (6.4-8.2); SODIUM 143 mmol/L (136-145); UREA NITROGEN 12 mg/dL (7-18); eGFR NON AFRICAN AMERICAN > 90 mL/min (90-120)
--- NOTE | 2017-05-11 05:00 | NUR ---
Chlorhexidine bath given, patient tolerated well. Platelet >50 with AM labs, no more platelets given per orders. Will notify IR in AM about results, no further needs at this time and will continue to monitor.
--- NOTE | 2017-05-11 08:00 | NUR ---
DR. ACOSTA HERE. PROPOFOL STOPPED.
--- NOTE | 2017-05-11 08:37 | NUR ---
Patient Name: OLESYA ANDRADE Encounter No: [id number] : 1950 Primary Insurance: MEDICARE A & B DCP follow-up note: Patient and family in agreement with discharge plan. No changes to plan. Case management will follow and assist as needed. Loraine Tan
--- NOTE | 2017-05-11 09:42 | NUR ---
NUTRITION F/U CHART REVIEWED. PT CURRENTLY NPO FOR PROCEDURE. NOTE POSSIBLE MOVE TO FLOOR. WILL MONITOR DIET ADVANCEMENT, PO INTAKE. RD FOLLOWING
--- NOTE | 2017-05-11 09:45 | NUR ---
TO X-RAY FOR THORACENTESIS.
--- NOTE | 2017-05-11 11:00 | NUR ---
RETURN FROM XRAY VIA BED. CONNECTED BACK TO MONITOR AND VS OBTAINED.
[2017-05-11 12:24] LABS: PROTEIN - BODY FLUID 0.8 G/DL
[2017-05-11 14:56] LABS: EOS BF 2 %; MACROPHAGES BF 21 %; MESOTHELIALS BF 3 %; NEUT - BF 21 %
--- NOTE | 2017-05-11 19:30 | NUR ---
RECEIVED CARE OF PT, ASSESSMENT PER FLOWSHEET. PT ALERT AND ORIENTED X 4, SITTING UP IN BED IN NO APPARENT DISTRESS, PPP, NEVES CATH PATENT, 02 AT 4L VIA NC, RT UPPER BACK DRESSING NOTED CDI, ABLE TO REPOSITION SELF INDEPENDENTLY FOR THE MOST PART, HR ST AT A RATE OF 103 ON MONITOR, DENIES ANY NEEDS AT THIS TIME, WILL MONITOR.
--- NOTE | 2017-05-11 20:25 | NUR ---
DR BANSAL PAGED PER PT REQUEST REGARDING LASIX, ORDER RECEIVED.
--- NOTE | 2017-05-11 21:40 | NUR ---
PT , DAYRON IN FOR VISITATION. UPDATE PROVIDED, ICE WATER PER REQUEST, BOTH DENY ANY NEEDS AT THIS TIME.
--- NOTE | 2017-05-11 23:15 | NUR ---
REASSESSMENT PER FLOWSHEET, NO ACUTE CHANGES NOTED AT THIS TIME. ASSISTED PT TO CHAIR PER REQUEST WITH MINIMAL HELP. TABLE CLOSE, CALL LIGHT IN REACH, DENIES ANY OTHER NEEDS, WILL CONT TO MONITOR.
[2017-05-12] VITALS (20 sets, daily range): BP systolic 104–146; BP diastolic 52–85
--- NOTE | 2017-05-12 01:50 | NUR ---
ASSISTED PT FROM CHAIR TO BED, PULLED UP AND SUPPORTED WITH PILLOWS. CALL LIGHT IN REACH, BED LOW, VSS.
--- NOTE | 2017-05-12 03:30 | NUR ---
REASSESSMENT PER FLOWSHEET, NO ACUTE CHANGES NOTED AT THIS TIME, VSS CONT POC.
--- NOTE | 2017-05-12 04:07 | NUR ---
PT REFUSED XRAY THIS AM. 05/12/2017.
[2017-05-12 04:46] LABS: BASOPHILS 0.3 % (0-2); EOSINOPHILS 2.9 % (0-7); HEMATOCRIT 31.6 % (36.0-48.0); IMMATURE GRANULOCYTES 0.3 % (0-5); LYMPHOCYTES 26.7 % (15-50); MCH 31.3 pg (26.0-34.0); MCHC 31.6 g/dL (31.0-37.0); MCV 99.1 fL (80.0-100.0); MEAN PLATELET VOLUME 11.5 fL (7.4-10.4); MONOCYTES 13.8 % (2-11); PLATELET COUNT 57 10x3/uL (130-400); RBC 3.19 10x6/uL (4.00-5.40); RDW 19.2 % (11.5-14.5); WBC 3.4 10x3/uL (4.8-10.8)
[2017-05-12 05:32] LABS: ALBUMIN 1.9 g/dL (3.4-5.0); ALKALINE PHOSPHATASE 85 U/L (46-116); ALT (SGPT) 25 U/L (10-68); CALC OSMOLALITY 283 mosm/kg (275-300); CALCIUM 7.6 mg/dL (8.5-10.1); CARBON DIOXIDE 25.1 mmol/L (21.0-32.0); CHLORIDE - SERUM 109 mmol/L (98-107); CREATININE - SERUM 0.7 mg/dL (0.6-1.3); GLUCOSE 203 mg/dL (74-106); POTASSIUM - SERUM 3.3 mmol/L (3.5-5.1); PROTEIN - SERUM 5.6 g/dL (6.4-8.2); SODIUM 140 mmol/L (136-145); UREA NITROGEN 10 mg/dL (7-18); eGFR NON AFRICAN AMERICAN 89 mL/min (90-120)
--- NOTE | 2017-05-12 05:40 | NUR ---
NO VISITORS PRESENT AT THIS TIME, PT RESTING SITTING UP IN BED IN NO APPARENT DISTRESS, VSS, CONT TO MONITOR.
--- NOTE | 2017-05-12 09:55 | NUR ---
AWAKES EASILY TO VERBAL STIMULI. ALERT SKIN WARM AND DRY. RESTING WITH EYES CLOSED. AT BEDSIDE ASSISTING HER WITH BREAKFAST. NEVES CATH PATENT. RIGHT INFUSAPORT CONNECTED TO NS AT 75 ML HOUR. MONITOR SR. NO DISTRESS
--- NOTE | 2017-05-12 10:48 | NUR ---
SITTING UP IN BED READING NEWSPAPER
--- NOTE | 2017-05-12 17:46 | NUR ---
ORDERS RECEIVED TO TRANSFER TO FLOOR. PATIENT IS REALLY WANTING A SHOWER. AT BEDSIDE. ASSIST WITH PATEINT CARE. UP IN CHAIR AT BEDSIDE WITH ASSISTANCES OF NURSE AND . STILL WEAK WEAK WITH UNSTEADY GAIT. NEW IV TUBING PLACE. NEVES CATH PATENT. PATIENT DOES NOT WANT NEVES CATH OUT AT THIS TIME. MONITOR SR. DENIES PAIN. DRY COUGH FREQ.
--- NOTE | 2017-05-12 19:15 | NUR ---
RESUMED CARE OF PT, ASSESSMENT PER FLOWSHEET. PT ALERT AND ORIENTED X 4, SITTING UP IN CHAIR IN NO APPARENT DISTRESS WITH AT BEDSIDE. HR SR AT A RATE OF 91, PPP, NS INFUSING AT 75 CC/HR PER RT CHEST PORT-DRESSING CDI, NEVES CATH PATENT WITH TESSIE URINE IN TUBING. ICE WATER PROVIDED PER REQUEST, DENIES ANY OTHER NEEDS AT THIS TIME.
--- NOTE | 2017-05-12 19:23 | NUR ---
REPORT CALLED TO ANDREW ON MED-SURG.
--- NOTE | 2017-05-12 20:00 | NUR ---
ASSESSED AT THE ARRIVAL OF PT FROM ICU. SHE IS ALERT AND ORIENTED, ABLE TO VERBALIZE NEEDS. HER WENT HOME AND GOT HIS BIPAP SO HE COULD STAY WITH HER IN THE ROOM. SHE HAS A NEVES CATH WITH DARK YELLOW URINE IN THE BACK. SHE IS ABLE TO TURN AND REPOSITION FOR SKIN CARE AND THERE IS A DRESSING TO HER RIGHT SHOULDER THAT IS FROM A THORACENTISIS WHICH IS CLEAN AND DRY. THE BED IS LOW, RAILS UP X'S 2 WITH THE CALL LIGHT AT HAND.
--- NOTE | 2017-05-12 20:00 | NUR ---
TRANSFERRED TO ROOM 2207 VIA W/C, PT TOLERATED WELL. ASSISTED PT INTO BED, AND PT NURSE-ANDREW IN ROOM, ICE WATER PROVIDED PER REQUEST.
[2017-05-12 20:07] LABS: AFB SPECIMEN PROCESSING Not Indicated (())
[2017-05-13 05:12] LABS: BASOPHILS 0.3 % (0-2); EOSINOPHILS 2.6 % (0-7); HEMOGLOBIN 9.9 g/dL (12-16); IMMATURE GRANULOCYTES 0.3 % (0-5); LYMPHOCYTES 26.2 % (15-50); MCH 31.5 pg (26.0-34.0); MCHC 31.9 g/dL (31.0-37.0); MCV 98.7 fL (80.0-100.0); MEAN PLATELET VOLUME 10.7 fL (7.4-10.4); MONOCYTES 13.1 % (2-11); NEUTROPHILS 57.5 % (40-80); PLATELET COUNT 53 10x3/uL (130-400); RBC 3.14 10x6/uL (4.00-5.40); RDW 19.1 % (11.5-14.5); WBC 3.1 10x3/uL (4.8-10.8)
[2017-05-13 05:34] LABS: ALBUMIN 1.8 g/dL (3.4-5.0); ALKALINE PHOSPHATASE 78 U/L (46-116); ALT (SGPT) 22 U/L (10-68); CALC OSMOLALITY 275 mosm/kg (275-300); CALCIUM 7.4 mg/dL (8.5-10.1); CARBON DIOXIDE 25.7 mmol/L (21.0-32.0); CHLORIDE - SERUM 107 mmol/L (98-107); CREATININE - SERUM 0.6 mg/dL (0.6-1.3); GLUCOSE 173 mg/dL (74-106); PROTEIN - SERUM 5.5 g/dL (6.4-8.2); SODIUM 137 mmol/L (136-145); UREA NITROGEN 7 mg/dL (7-18); eGFR NON AFRICAN AMERICAN > 90 mL/min (90-120)
[2017-05-13 05:35] LABS: POTASSIUM - SERUM 2.8 mmol/L (3.5-5.1)
--- NOTE | 2017-05-13 07:30 | NUR ---
AWAKE AND ALERT. ORIENTED X3. SITTING UP IN CHIAR AT BEDSDIE. REQUESTED NEVES BE D/C. LUNGS HAVE FAINT CRACKLES THROUGHOUT LUNG DIEGO WITH OCCASSIONAL WHEEZES NOTED. REPORTS NON PRODUCTIVE COUGH. SKIN IS INTACT WITHOUT REDNESS. RIGHT PORT PATENT WITHOUT REDNESS AT INSERTION SITE. NEVES PATENT WITH CLEAR YELLOW URINE. AT BEDSIDE. DENIES NEEDS.
[2017-05-13 08:40] VITALS: BP 139/60
--- NOTE | 2017-05-13 10:29 | NUR ---
NEVES D/C WITH TIP INTACT WITHOUT DIFFICULTY. PATTY CARE PER STAFF.
--- NOTE | 2017-05-13 12:00 | NUR ---
FSBS 193. GIVEN 2 UNITS REGULAR SUBQ PER SS. LUNCH SERVED IN ROOM.
[2017-05-13 12:25] VITALS: BP 137/52
[2017-05-13 16:36] VITALS: BP 125/53
--- NOTE | 2017-05-13 17:00 | NUR ---
FSBS 205. GIVEN 4 UNITS REGUALR SUBQ PER SS. SUPER SERVED IN ROOM. AT BEDSIDE.
--- NOTE | 2017-05-13 18:34 | NUR ---
ATE MOST OF SUPPER. REPORTED HAVING BLADDER SPASMS OFF AND ON FOR SEVERAL DAYS BUT WORSE SINCE NEVES D/C. DR. AUGUSTE NOTIFIED OF SAME. NEW ORDERS RECEIVED. NO CHANGES NOTED. DENIES NEEDS.
[2017-05-13 20:00] VITALS: BP 139/54
--- NOTE | 2017-05-13 20:02 | NUR ---
REC'D SITTING IN CHAIR IN ROOM AWAKE AND ALERT. RESP EVEN AND UNLABORED WITH NO DISTRESS NOTED. HAS O2 IN USE VIA N/C @ 3 L/M. CAN EXPRESS NEEDS AND WANTS. ASSESSMENT COMPLETED. AT BEDSIDE. C/L IN REACH.
[2017-05-14] VITALS: BP 132/60
[2017-05-14 04:00] VITALS: BP 128/53
--- NOTE | 2017-05-14 04:41 | NUR ---
RESTING WELL AT THIS TIME. NO C/O NOTED OR VOICED. C/L IN REACH AT BEDSIDE.
[2017-05-14 05:53] LABS: BASOPHILS 0.3 % (0-2); EOSINOPHILS 2.6 % (0-7); HEMATOCRIT 31.9 % (36.0-48.0); HEMOGLOBIN 10.2 g/dL (12-16); IMMATURE GRANULOCYTES 0.3 % (0-5); LYMPHOCYTES 19.9 % (15-50); MCH 31.7 pg (26.0-34.0); MCV 99.1 fL (80.0-100.0); MEAN PLATELET VOLUME 12.1 fL (7.4-10.4); MONOCYTES 11.7 % (2-11); NEUTROPHILS 65.2 % (40-80); PLATELET COUNT 63 10x3/uL (130-400); RBC 3.22 10x6/uL (4.00-5.40); RDW 19.1 % (11.5-14.5); WBC 3.5 10x3/uL (4.8-10.8)
[2017-05-14 06:10] LABS: ALBUMIN 1.9 g/dL (3.4-5.0); ALKALINE PHOSPHATASE 76 U/L (46-116); ALT (SGPT) 23 U/L (10-68); CALC OSMOLALITY 278 mosm/kg (275-300); CALCIUM 7.4 mg/dL (8.5-10.1); CHLORIDE - SERUM 106 mmol/L (98-107); CREATININE - SERUM 0.6 mg/dL (0.6-1.3); GLUCOSE 174 mg/dL (74-106); PROTEIN - SERUM 5.7 g/dL (6.4-8.2); SODIUM 139 mmol/L (136-145); eGFR NON AFRICAN AMERICAN > 90 mL/min (90-120)
[2017-05-14 06:16] LABS: UREA NITROGEN 5 mg/dL (7-18)
--- NOTE | 2017-05-14 07:15 | NUR ---
REPORT RECEIVED, ASSUMED CARE OF PT. RESTING WITH EYES SHUT, EASILY AROUSED, FAMILY AT BEDSIDE. R PORT INFUSING ORDERED, DRSG C/D/I. SCD'S IN PLACE BILATERALLY. NO NEEDS VOICED AT THIS TIME. BED IN LOWEST POSITION, SIDE RAILS UP X 2, CALL LIGHT WIHIN REACH.
--- NOTE | 2017-05-14 07:52 | NUR ---
PT LEFT FLOOR WITH RADIOLOGY.
--- NOTE | 2017-05-14 08:08 | NUR ---
PT RETURNED TO FLOOR FROM RADIOLOGY.
--- NOTE | 2017-05-14 10:10 | NUR ---
LEFT NURSE WITH DR. VEGA ABOUT FAMILY CONCERNS OF EDEMA AND DECREASED ALBUMIN, AWAITING RETURN CALL.
[2017-05-14 10:11] LABS: FUNGUS STAIN Final report (())
[2017-05-14 12:43] VITALS: BP 129/58
[2017-05-14 16:12] LABS: AEROBE ID Final report (())
[2017-05-14 16:27] VITALS: BP 130/60
[2017-05-14 20:00] VITALS: BP 133/53
[2017-05-15] VITALS: BP 143/53
--- NOTE | 2017-05-15 02:00 | NUR ---
REC'D. AT [facility]. OF SHIFT.SITTING ON SIDE OF BED. AT BEDSIDE.DENIES ANY DISCOMFORT AT PRESENT TIME.02 3L NC.REINFORCED NPO AT MIDNITE FOR ULTRASOUND IN AM. VOICES UNDERSTANDING. WILL CONTINUE TO MONITOR FOR ANY CHGES. AND FOLLOW CURRENT PLAN OF CARE.
--- NOTE | 2017-05-15 02:00 | NUR ---
PT IN BED WITH NO DISTRESS. RESPIRATIONS EVEN AND UNLABORED. VISITOR AT BEDSIDE. SIDE RAILS X 2. BED LOW. CALL LIGHT IN REACH.
[2017-05-15 04:00] VITALS: BP 119/47
[2017-05-15 07:19] LABS: BASOPHILS 0.3 % (0-2); EOSINOPHILS 2.6 % (0-7); HEMATOCRIT 30.2 % (36.0-48.0); HEMOGLOBIN 9.6 g/dL (12-16); IMMATURE GRANULOCYTES 0.3 % (0-5); LYMPHOCYTES 22.6 % (15-50); MCH 31.6 pg (26.0-34.0); MCHC 31.8 g/dL (31.0-37.0); MCV 99.3 fL (80.0-100.0); MEAN PLATELET VOLUME 11.9 fL (7.4-10.4); NEUTROPHILS 63.2 % (40-80); PLATELET COUNT 57 10x3/uL (130-400); RBC 3.04 10x6/uL (4.00-5.40); RDW 19.6 % (11.5-14.5); WBC 3.5 10x3/uL (4.8-10.8)
[2017-05-15 07:29] LABS: PLATELET ESTIMATE DECREASED
[2017-05-15 07:35] LABS: ALBUMIN 1.8 g/dL (3.4-5.0); ALKALINE PHOSPHATASE 86 U/L (46-116); ALT (SGPT) 20 U/L (10-68); BILIRUBIN - TOTAL 1.17 mg/dL (0.2-1.3); CALC OSMOLALITY 285 mosm/kg (275-300); CALCIUM 7.3 mg/dL (8.5-10.1); CARBON DIOXIDE 29.1 mmol/L (21.0-32.0); CHLORIDE - SERUM 108 mmol/L (98-107); CREATININE - SERUM 0.6 mg/dL (0.6-1.3); GLUCOSE 160 mg/dL (74-106); POTASSIUM - SERUM 3.1 mmol/L (3.5-5.1); PROTEIN - SERUM 5.6 g/dL (6.4-8.2); SODIUM 143 mmol/L (136-145); UREA NITROGEN 8 mg/dL (7-18); eGFR NON AFRICAN AMERICAN > 90 mL/min (90-120)
--- NOTE | 2017-05-15 08:00 | NUR ---
REC'D IN ROOM SITTING ON SIDE OF BED EATING BREAKFAST. RESP EVEN AND UNLABORED WITH NO DISTRESS NOTED. CAN EXPRESS NEEDS AND WANTS. NO C/O NOTED OR VOICED. ASSESSMENT COMPLETED. C/L IN REACH AT BEDSIDE.
[2017-05-15 08:40] VITALS: BP 114/47
--- NOTE | 2017-05-15 11:13 | NUR ---
NUTRITION F/U CHART REVIEWED, PT VISIT. ENCOURAGED PO INTAKE , ASSISTING WITH MEAL SELECTIONS. PT TO TRY GLUCERNA SHAKE WITH MEALS. MAY BENEFIT FROM IV ALBUMIN [address] FOLLOWING
[2017-05-15 11:50] VITALS: BP 119/49
[2017-05-15 16:11] VITALS: BP 152/87
--- NOTE | 2017-05-15 16:18 | NUR ---
RESPIRATIONS EVEN AND NON LABORED. DENIES NEEDS AT PRESENT TIME. CALL LIGHT IN REACH, WILL CONTINUE WITH PLAN OF CARE.
[2017-05-15 20:00] VITALS: BP 126/46
[2017-05-16] VITALS: BP 128/44
--- NOTE | 2017-05-16 00:57 | NUR ---
CHANGE OF SHIFT SITTING UP BEDSIDE CHAIR AT BEDSIDE. 023L NC. DENIES ANY RESP. DIFFICULTY AT PRESENT TIME.DOES STATE SOME SOB ON MINIMAL EXERTION NO RESP. DISTRESS OBSERVED.WILL CONTINUE TO MONITOR RESP. STATUS AND FOLLOW CURRENT PLAN OF CARE
[2017-05-16 04:00] VITALS: BP 118/55
[2017-05-16 06:56] LABS: CALC OSMOLALITY 285 mosm/kg (275-300); CALCIUM 7.4 mg/dL (8.5-10.1); CHLORIDE - SERUM 107 mmol/L (98-107); CREATININE - SERUM 0.6 mg/dL (0.6-1.3); GLUCOSE 162 mg/dL (74-106); POTASSIUM - SERUM 3.2 mmol/L (3.5-5.1); SODIUM 142 mmol/L (136-145); UREA NITROGEN 9 mg/dL (7-18); eGFR NON AFRICAN AMERICAN > 90 mL/min (90-120)
--- NOTE | 2017-05-16 07:19 | NUR ---
REPORT RECEIVED FROM CAR CUSTOMIZER NURSE. CALL LIGHT IN REACH.
--- NOTE | 2017-05-16 08:30 | NUR ---
PT SITTING ON THE SIDE OF THE BED, NO VISABLE SIGNS OF PAIN OR DISCOMFORT AT THIS TIME. BED IN LOW POSITION AND CALL LIGHT WITHIN REACH. WILL CONTINUE TO MONITOR.
[2017-05-16 08:33] VITALS: BP 132/54
--- NOTE | 2017-05-16 10:20 | NUR ---
Referral sent to [place] for IV Rocephin brand. CM awaiting brand & coverage
--- NOTE | 2017-05-16 10:23 | NUR ---
ASSESSMENT COMPLETED. REFUSES SCDs. AM MEDS ADMINISTERED ALONG WITH ELECTROLYTE PROTOCOL. FAMILY IN ROOM. CALL LIGHT IN REACH. WILL CONTINUE WITH PLAN OF CARE.
--- NOTE | 2017-05-16 10:56 | NUR ---
[facility] PLACED IN FOR MEASUREMENT OF URINE OUTPUT.
--- NOTE | 2017-05-16 12:11 | NUR ---
FSBS 174. REGULAR 2 UNITS SUBQ TO RLQ ABD. DENIES PAIN. CALL LIGHT IN REACH.
[2017-05-16 12:27] VITALS: BP 116/48
--- NOTE | 2017-05-16 13:30 | NUR ---
TO MRI VIA WC.
--- NOTE | 2017-05-16 14:50 | NUR ---
NEGRITO FLEMING PO. CALL LIGHT IN REACH.
--- NOTE | 2017-05-16 16:58 | NUR ---
WENT IN TO DO BS, DRSG CHANGE, AND TUBING CHANGE BUT PATIENT WANTS TO WAIT UNTIL AFTER HER SHOWER. WILL CALL WHEN SHE IS FINISHED.
[2017-05-16 17:23] VITALS: BP 129/48
--- NOTE | 2017-05-16 17:41 | NUR ---
CENTRAL LINE DRSG CHANGED AND IV TUBING CHANGED PER ORDER. REFUSED INSULIN BECAUSE SHE IS EATING AT THIS TIME.
--- NOTE | 2017-05-16 18:41 | NUR ---
CENTRAL LINE DRSG CHANGED USING STERILE TECHNIQUE PER HOSPITAL POLICY. NO CHANGES IN INITIAL ASSESSMENT. REFUSES SCDs. CALL LIGHT IN REACH. WILL CONITNUE WITH PLAN OF CARE.
[2017-05-16 20:00] VITALS: BP 123/46
[2017-05-17] VITALS: BP 137/48
--- NOTE | 2017-05-17 02:00 | NUR ---
PT IN BED WITH NO DISTRESS. RESPIRATIONS EVEN AND UNLABORED. SIDE RAILS X 2. BED IS LOW. CALL LIGHT IN REACH. VISITOR AT BEDSIDE.
[2017-05-17 04:00] VITALS: BP 128/41
--- NOTE | 2017-05-17 07:45 | NUR ---
AWAKE AND ALERT. ORIENTED X3. SITTING UP IN CHIAR AT BEDSIDE. LUNGS ARE CLEAR BILATERALLY BUT DIMINISHED IN BILATERAL LOWER LOBES. SKIN IS INTACT WITHOUT REDNESS. RIGHT PORT PATENT WITHOUT REDNESS AT INSERTION SITE. DENIES NEEDS.
[2017-05-17 08:01] LABS: CALC OSMOLALITY 284 mosm/kg (275-300); CALCIUM 8.1 mg/dL (8.5-10.1); CARBON DIOXIDE 29.5 mmol/L (21.0-32.0); CHLORIDE - SERUM 107 mmol/L (98-107); CREATININE - SERUM 0.6 mg/dL (0.6-1.3); GLUCOSE 129 mg/dL (74-106); POTASSIUM - SERUM 3.3 mmol/L (3.5-5.1); SODIUM 142 mmol/L (136-145); eGFR NON AFRICAN AMERICAN > 90 mL/min (90-120)
[2017-05-17 08:09] VITALS: BP 129/52
[2017-05-17 08:09] LABS: BASOPHILS 0.7 % (0-2); EOSINOPHILS 2.9 % (0-7); HEMATOCRIT 30.2 % (36.0-48.0); HEMOGLOBIN 9.5 g/dL (12-16); LYMPHOCYTES 21.9 % (15-50); MCH 31.4 pg (26.0-34.0); MCHC 31.5 g/dL (31.0-37.0); MCV 99.7 fL (80.0-100.0); MONOCYTES 8.6 % (2-11); NEUTROPHILS 65.9 % (40-80); RBC 3.03 10x6/uL (4.00-5.40); RDW 19.3 % (11.5-14.5); UREA NITROGEN 12 mg/dL (7-18); WBC 4.2 10x3/uL (4.8-10.8)
[2017-05-17 08:27] LABS: PLATELET COUNT 49 10x3/uL (130-400); PLATELET ESTIMATE DECREASED
--- NOTE | 2017-05-17 09:30 | NUR ---
ATE A GOOD BREAKFAST AND TOOK AM MEDS WITHOUT DIFFICULTY. DENIES NEEDS. AT BEDSIDE.
--- NOTE | 2017-05-17 12:00 | NUR ---
FSBS 197. GIVEN 2 UNITS REGULAR INSULIN SUBQ. LUNCH TRAY SERVED IN ROOM.
[2017-05-17 12:28] VITALS: BP 134/45
--- NOTE | 2017-05-17 15:00 | NUR ---
RESTING QUIETLY IN BED. DENIES NEEDS. POTASSIUM COMPLETED.
[2017-05-17 15:47] VITALS: BP 139/54
--- NOTE | 2017-05-17 16:55 | NUR ---
CM RECEIVED PRICES FROM [employer] [facility] [employer] FOR IV ABX [employer] [employer] RIVER IS $180.00 [employer] $ 99.00 CM CALLED AND SPOKE WITH DR VEGA AND REPORTED THESE PRICES TO HIM. CM WILL CONTINUE TO FOLLOW AND ASSIST WITH DISCHARGE PLANNING NEEDS
--- NOTE | 2017-05-17 17:00 | NUR ---
FSBS 191. GIVEN 2 UNITS REGUALR SUBQ PER SS.
--- NOTE | 2017-05-17 18:02 | NUR ---
ATE ONLY HER SOUP FOR SUPPER. NO CHANGES NOTED. DENIES NEEDS.
--- NOTE | 2017-05-17 19:58 | NUR ---
PATIENT RESTING IN BED AND DENIES NEEDS AT THIS TIME. BED IN LOWEST POSITION AND CALL LIGHT WITHIN REACH. ENCOURAGED THE PATIENT TO CALL IF SHE HAS NEEDS.
[2017-05-17 20:00] VITALS: BP 113/46
--- NOTE | 2017-05-18 01:50 | NUR ---
SITTING ON THE SIDE OF BED, AT BEDSIDE, DENIES NEEDS, CALL LIGHT IN REACH
[2017-05-18 06:31] LABS: BASOPHILS 0.5 % (0-2); HEMATOCRIT 30.6 % (36.0-48.0); HEMOGLOBIN 9.6 g/dL (12-16); LYMPHOCYTES 24.9 % (15-50); MCH 31.3 pg (26.0-34.0); MCHC 31.4 g/dL (31.0-37.0); MCV 99.7 fL (80.0-100.0); MEAN PLATELET VOLUME 12.2 fL (7.4-10.4); MONOCYTES 9.1 % (2-11); NEUTROPHILS 61.5 % (40-80); PLATELET COUNT 52 10x3/uL (130-400); RBC 3.07 10x6/uL (4.00-5.40); RDW 19.5 % (11.5-14.5); WBC 4.3 10x3/uL (4.8-10.8)
[2017-05-18 06:41] LABS: CALC OSMOLALITY 277 mosm/kg (275-300); CALCIUM 7.9 mg/dL (8.5-10.1); CARBON DIOXIDE 31.3 mmol/L (21.0-32.0); CHLORIDE - SERUM 106 mmol/L (98-107); CREATININE - SERUM 0.6 mg/dL (0.6-1.3); GLUCOSE 119 mg/dL (74-106); MAGNESIUM - SERUM 1.6 mg/dL (1.8-2.4); POTASSIUM - SERUM 3.6 mmol/L (3.5-5.1); SODIUM 139 mmol/L (136-145); UREA NITROGEN 11 mg/dL (7-18); eGFR NON AFRICAN AMERICAN > 90 mL/min (90-120)
--- NOTE | 2017-05-18 08:07 | NUR ---
AWAKE AND ALERT. ORIENTED X3. NO C/O AT THIS TIME. LUNGS ARE CLEAR BILATERALLY, NO COUGH NOTED. SKIN IS INTACT WITHOUT REDNESS. SOME SWELLING NOTED TO ABDOMEN. REPORTS MULTIPLE SMALL BM'S FROM YESTERDAY. RIGHT PORT PATNET WITHOUT REDNESS AT INSERTION SITE. SITTING UP ON SIDE OF BED. DENIES NEEDS.
[2017-05-18 08:38] VITALS: BP 117/46
--- NOTE | 2017-05-18 09:06 | NUR ---
SPOKE WITH PATIENT ABOUT HOME HEALTH AND HOME IV ABX. PATIENT DOES NOT WANT HH AT THIS TIME. PATIENT WILL NEED HOME O2 SET UP. [facility] WAS CONTACTED FOR O2. DR VEGA NOTIFIED ABOUT PATIENT WISHES. CM WILL CONTINUE TO FOLLOW AND ASSIST WITH DISCHARGE PLANNING.
--- NOTE | 2017-05-18 09:31 | EC ---
PATIENT:OLESYA ANDRADE DATE OF SERVICE: 05/06/17 SEX: F MEDICAL RECORD: [id number] DATE OF : [birth year] LOCATION:[facility] AGE OF PATIENT: 66 ADMISSION DATE: 05/06/17 REFERRING PHYSICIAN: INTERPRETING PHYSICIAN: KAMI LEVINE MD ECHOCARDIOGRAM REPORT ECHO CHARGES 4 ECHO COMPLETE CLINICAL DIAGNOSIS: PULMONARY EDEMA,SEPSIS ECHOCARDIOGRAPHIC MEASUREMENTS (adult normal given) AC root (d.<3.7cm) 3.0 cm LV Septum d (<1.2 cm> 1.3 cm Valve Excursion 1.4 cm LV Septum (systole) 1.7 cm Left Atria (s.<4.0cm> 3.2 cm LVPW d(<1.2cm) 1.4 cm RV (d.<2.3cm) 3.7 cm LVPW (sytole) 1.8 cm LV diastole(<5.6CM) 4.5 cm MV E-F(>70mm/sec) cm LV systole 3.0 cm LVOT Diameter 1.7 cm MV exc.(>10mm) 1.3 cm Est.ejection fraction (50-75%) % Pericardial Effusion N DOPPLER: LVIT cm/sec A 97.0 cm/sec E 112 cm/sec LA cm/sec RVSP 25 mmHg LVOT 137 cm/sec AOP1/2T m/s Asc. Ao 200 cm/sec RVOT 117 cm/sec RA cm/sec PA 164 cm/sec AV Gradient Peak 16.0 mmHg AV Mean 9.20 mmHg AV Area 1.7 cm MV Gradient Peak 8.22 mmHg MV Mean 3.15 mmHg MV Area cm COMMENTS: Supervisor [employer]: Kristy LOPEZ Instructional Technology Teacher: 1 Dr. Levine TAPE# PACS DATE OF SERVICE: 05/06/2017 FINDINGS: 1. Left ventricular chamber size is within normal limits. Left ventricular systolic function is normal. Overall ejection fraction estimated at 60%. 2. Left atrium, right atrium, and right ventricle chamber sizes are within normal limits. 3. Valvular structures have normal structure and motion. 4. Doppler interrogation reveals mild mitral regurgitation, mild tricuspid regurgitation, no other valvular insufficiency or stenosis. Pulmonary artery ECHOCARDIOGRAM REPORT [id number] OLESYA ANDRADE systolic pressure is normal, estimated at 25 mmHg. 5. No evidence of pericardial effusion or left ventricular thrombus. TRANSINT:[id number] Voice Confirmation ID: [id number] DOCUMENT ID: [id number] 05/14/2017 Edited to correct date of service, [email or web address]. KAMI LEVINE MD at 0931 CC: [id number] DICTATION DATE: 05/07/17 0907 TEST AND RESEARCH REACTOR OPERATOR: 05/07/17 1123 ADM IN [place] [id number] [place] [address]
--- NOTE | 2017-05-18 10:00 | NUR ---
CONTINUES SITTING UP ON SIDE OF BED. DENIES NEEDS.
--- NOTE | 2017-05-18 12:00 | NUR ---
FSBS 167. GIVEN 2 UNITS REGULAR SUBQ PER SS. LUNCH SERVED IN ROOM.
[2017-05-18 13:01] VITALS: BP 130/48
[2017-05-18 16:18] VITALS: BP 132/48
--- NOTE | 2017-05-18 17:00 | NUR ---
FSBS 172. GIVEN 2 UNITS REGULAR SUBQ PER SS. DENIES NEEDS. ATE MOST OF SUPPER. VISITORS AT BEDSIDE. NO CHANGES NOTED.
--- NOTE | 2017-05-18 19:15 | NUR ---
RECEIVED CARE FROM DAY NURSE. PT SITTING UP ON SIDE OF BED. REPORTS NO NEEDS AT THIS TIME. CALL LIGHT AT SIDE. SPOUSE AT SIDE.
[2017-05-18 20:00] VITALS: BP 137/45
[2017-05-19] VITALS: BP 141/45
--- NOTE | 2017-05-19 00:39 | NUR ---
PT IN BED WITH SPOUSE AT SIDE. NO NEEDS NOTED. IP SL.
[2017-05-19 06:00] VITALS: BP 146/62
[2017-05-19 06:23] LABS: CALC OSMOLALITY 281 mosm/kg (275-300); CALCIUM 8.2 mg/dL (8.5-10.1); CARBON DIOXIDE 30.3 mmol/L (21.0-32.0); CHLORIDE - SERUM 105 mmol/L (98-107); CREATININE - SERUM 0.6 mg/dL (0.6-1.3); GLUCOSE 157 mg/dL (74-106); MAGNESIUM - SERUM 1.8 mg/dL (1.8-2.4); POTASSIUM - SERUM 3.8 mmol/L (3.5-5.1); SODIUM 139 mmol/L (136-145); UREA NITROGEN 14 mg/dL (7-18); eGFR NON AFRICAN AMERICAN > 90 mL/min (90-120)
--- NOTE | 2017-05-19 08:00 | NUR ---
RECIEVED PT FROM [facility] SHIFT NURSE. PT SITTING UP IN CHAIR WITH NO COMPLAINTS OF PAIN OR DISCOMFORT. ASSESSMENT DONE PER FLOWSHEET. CALL LIGHT WITHIN REACH, WILL CONTINUE TO MONITOR.
[2017-05-19 08:42] VITALS: BP 126/55
[2017-05-19 12:52] VITALS: BP 118/58
[2017-05-19 16:04] VITALS: BP 129/56
--- NOTE | 2017-05-19 19:15 | NUR ---
RECEIVED CARE FROM DAY NURSE. PT UP IN CHAIR. REPORTS NO NEEDS AT THIS TIME. CALL LIGHT AT SIDE. SPOUSE AT SIDE.
[2017-05-19 20:00] VITALS: BP 127/51
--- NOTE | 2017-05-19 23:00 | NUR ---
PT SITTING ON SIDE OF BED. REPORTS NO NEEDS. CALL LIGHT AT SIDE. SPOUSE AT SIDE.
[2017-05-20] VITALS: BP 129/49
--- NOTE | 2017-05-20 03:17 | NUR ---
RESTING QUITLY RESP EVEN AND UNLABORED. CALL LIGHT AT SIDE. SPOUSE AT SIDE. O2 AT 3L VIA NC.
--- NOTE | 2017-05-20 03:37 | NUR ---
PATIENT RESTING IN BED WITH EYES CLOSED AND NO VISIBLE SIGNS OF DISTRESS. GUEST AT BEDSIDE. BED IN LOWEST POSITION AND CALL LIGHT WITHIN REACH.
[2017-05-20 04:00] VITALS: BP 130/53
--- NOTE | 2017-05-20 05:51 | NUR ---
INJECTED 10ML SALINE INTO PORT. PT REPORTS STINGING. AREA AROUND NEEDLE SWOLLEN. NO BLOOD RETURN FROM PORT. FLORA MCKOY NEEDLE. WILL NOT REACCESS AT THIS TIME TO ALLOW SWELLING TO SUBSIDE. PT REPORTS PAIN IN RIGHT KNEE. HEAT PACK APPLIED. TYLENOL TO BE GIVEN.
--- NOTE | 2017-05-20 06:07 | NUR ---
PT DOES NOT WANT THE TYLENOL IT IS A SUPOSITORY. PT HAS GOOD PULSES IN HER FOOT BUT LARGE AMOUNT OF PAIN TO MEDIAL RIGHT KNEE. DOES NOT WANT ME TO CALL THE DR AT THIS TIME. PT REPORTS SHE HAD THE SAME PAIN IN HER LEFT KNEE TWO MORNINGS AGO.
[2017-05-20 06:40] LABS: BASOPHILS 0.8 % (0-2); EOSINOPHILS 3.1 % (0-7); HEMATOCRIT 31.5 % (36.0-48.0); HEMOGLOBIN 9.9 g/dL (12-16); LYMPHOCYTES 27.7 % (15-50); MCH 31.1 pg (26.0-34.0); MCHC 31.4 g/dL (31.0-37.0); MCV 99.1 fL (80.0-100.0); MEAN PLATELET VOLUME 11.6 fL (7.4-10.4); MONOCYTES 10.1 % (2-11); NEUTROPHILS 58.3 % (40-80); PLATELET COUNT 51 10x3/uL (130-400); RBC 3.18 10x6/uL (4.00-5.40); RDW 19.3 % (11.5-14.5); WBC 3.6 10x3/uL (4.8-10.8)
--- NOTE | 2017-05-20 06:42 | NUR ---
CALLED TO ROOM BY PT. REPORTS FEELING SOB. O2 89% ON 3L O2 VIA NC. O2 RAISED TO 5L AND SATS BRITNEY TO 93%. PT REPORTS ALREADY FEELING BETTER O2 LOWERED TO 4L VIA NC. O2 MAINTAING AROUND 92%. PT REPORTS FINE NOW. PT REPORTS HISTORY OF SOB ON EXERTION AND SHE HAD BEEN PUTTING ON A NEW DEPENDS POST USING THE BATHROOM. PT ALSO REPORTS KNEE FEELING BETTER AFTER WORKING OUT THE PAIN BY MOVING IT. 02 MONITOR LEFT ON TO MONITOR FOR THE NEW 30 MINUTES.
[2017-05-20 06:46] LABS: CALC OSMOLALITY 283 mosm/kg (275-300); CALCIUM 8.2 mg/dL (8.5-10.1); CARBON DIOXIDE 31.1 mmol/L (21.0-32.0); CHLORIDE - SERUM 104 mmol/L (98-107); CREATININE - SERUM 0.7 mg/dL (0.6-1.3); GLUCOSE 130 mg/dL (74-106); MAGNESIUM - SERUM 1.7 mg/dL (1.8-2.4); POTASSIUM - SERUM 3.7 mmol/L (3.5-5.1); SODIUM 141 mmol/L (136-145); UREA NITROGEN 14 mg/dL (7-18); eGFR NON AFRICAN AMERICAN 89 mL/min (90-120)
--- NOTE | 2017-05-20 07:15 | NUR ---
PT UP TO RESTROOM. DESATED TO 91% ON 4L O2. POST SITTING BACK IN CHAIR O2 RAPIDLY BRITNEY TO 92% ON 4L O2. CONT PULSE OX INITITATED.
--- NOTE | 2017-05-20 07:30 | NUR ---
RECIEVED PT DURING WALKING ROUNDS, PT RESTING IN CHAIR WITH NO COMPLAINTS OF PAIN OR DISCOMFORT AT THIS TIME. ASSESSMENT DONE PER FLOWSHEET. PT ON CONTINUOUS PULSE OX DUE TO DESAT DURING AMBULATION. CALL LIGHT IN REACH. WILL CONTINUE TO MONITOR.
[2017-05-20 09:33] VITALS: BP 123/36
[2017-05-20 12:09] VITALS: BP 122/63
--- NOTE | 2017-05-20 14:10 | NUR ---
PTS RIGHT CHEST PORT ACCESES USING STERILE TECHNIQUE 1IN [place] NEEDLE USED. PORT FLUSHES AND DRAWS BLOOD. PT TOLERATED WELL. BED IN LOW POSITION AND CALL LIGHT WITHIN REACH. WILL CONTINUE TO MONITOR.
--- NOTE | 2017-05-20 19:15 | NUR ---
RECEIVED CARE FROM DAY NURSE. PT SITTING ON SIDE OF BED. REPORTS NO NEEDS. CALL LIGHT AT SIDE. SPOUSE AT BEDSIDE.
[2017-05-20 20:00] VITALS: BP 136/54
--- NOTE | 2017-05-20 22:30 | NUR ---
PT C/O PAIN SO INTENSE SHE CAN'T MOVE AND IS TEARFUL. ORDER RECEIVED FOR NORCO 5 Q6H PRN. HEAT APPLIED TO RIGHT KNEE.
--- NOTE | 2017-05-21 01:30 | NUR ---
PT REQUEST MORE PAIN MEDICATION DUE TO PAIN IN RIGHT KNEE. NOT DUE AT THIS TIME. ICE APPLIED TO KNEE. WILL REASSESS.
--- NOTE | 2017-05-21 02:19 | NUR ---
RESTING QUITLY IN BED WITH EYES CLOSED. RESP EVEN AND UNLABORED. CALL LIGHT AT SIDE. SPOUSE AT SIDE. ICE PACK TO RIGHT KNEE.
[2017-05-21 04:00] VITALS: BP 111/41
[2017-05-21 06:01] LABS: BASOPHILS 1.1 % (0-2); EOSINOPHILS 3.7 % (0-7); HEMATOCRIT 29.8 % (36.0-48.0); HEMOGLOBIN 9.3 g/dL (12-16); IMMATURE GRANULOCYTES 0.3 % (0-5); LYMPHOCYTES 28.8 % (15-50); MCH 31.2 pg (26.0-34.0); MCHC 31.2 g/dL (31.0-37.0); MEAN PLATELET VOLUME 12.2 fL (7.4-10.4); NEUTROPHILS 54.1 % (40-80); RBC 2.98 10x6/uL (4.00-5.40); RDW 19.4 % (11.5-14.5); WBC 3.5 10x3/uL (4.8-10.8)
[2017-05-21 06:11] LABS: PLATELET COUNT 48 10x3/uL (130-400)
[2017-05-21 06:21] LABS: ANION GAP 5.7 mmol/L (8-16); CALCIUM 8.1 mg/dL (8.5-10.1); CARBON DIOXIDE 36.1 mmol/L (21.0-32.0); MAGNESIUM - SERUM 1.8 mg/dL (1.8-2.4); PHOSPHOROUS 4.7 mg/dL (2.5-4.9); POTASSIUM - SERUM 3.8 mmol/L (3.5-5.1)
[2017-05-21 06:30] LABS: CREATININE - SERUM 0.9 mg/dL (0.6-1.3)
--- NOTE | 2017-05-21 07:50 | NUR ---
PATIENT IN BED WITH IV INTACT. SITTING UP WITH EYES OPEN. NO COMPLAINTS OR SIGNS OF DISTRESS. FAMILY AT BEDSIDE. CALL LIGHT WITHIN REACH.
[2017-05-21 08:30] VITALS: BP 128/43
--- NOTE | 2017-05-21 09:51 | NUR ---
PT CURRENTLY ON 4 LITERS NC SPO2 94%
[2017-05-21 10:35] LABS: INR 1.18 (0.85-1.17); PROTIME 14.9 SECONDS (11.6-15.0)
--- NOTE | 2017-05-21 13:23 | NUR ---
PATIENT TO GET PLEUREX CATH PLACED
[2017-05-21 13:25] VITALS: BP 125/69
[2017-05-21 16:00] VITALS: BP 183/60
--- NOTE | 2017-05-21 19:26 | NUR ---
PATIENT IN ROOM WITH NO COMPLAINTS AT THIS TIME. IV INTACT. FAMILY AT BEDSIDE. PATIENT TAUGHT DRAIN CARE BY PLASTER HELPER DRAINED 1 LITER.
--- NOTE | 2017-05-21 19:40 | NUR ---
RECIEVED SHIFT REPORT. PT IS LYING IN BED. ALERT AND ORIENTED AND ABLE TO VERBALIZE NEEDS. IV IS PATENT AND SALINE LOC AT THIS TIME. PT IS AMBULATORY WITH ASSISTANCE. PT REFUSES SCD'S. O2 @ 2 PER NASAL CANNULA. PT IS AMBULATORY WITH ASSISTANCE. DRESSING TO RIGHT SIDE C/D/I. PT DENIES ANY PAIN AT THIS TIME. NO NEEDS ARE VERBALIZED AT THIS TIME. WILL CONTINUE TO MONITOR. SIDE RAILS ARE UP X 2. BED IS IN LOWEST POSITION. CALL LIGHT IS WITHIN REACH.
[2017-05-21 20:00] VITALS: BP 142/57
--- NOTE | 2017-05-21 21:20 | NUR ---
SHIFT ASSESSMENT COMPLETED. NIGHT MEDS GIVEN WITH NO PROBLEMS. PT RECIEVED 4 UNITS INSULIN PER SLIDING SCALE FOR QFRG=[id number]. PT DENIES ANY PAIN BUT REQUESTED PAIN PILL. PRN NORCO ADMINISTERED PER ORDER. DENIES FURTHER NEEDS. WILL MONITOR. SIDE RAILS X 2. BED LOW. CALL LIGHT IN REACH. AT BEDSIDE.
[2017-05-22] VITALS: BP 148/54
[2017-05-22 04:00] VITALS: BP 124/40
[2017-05-22 05:05] LABS: BASOPHILS 1.1 % (0-2); EOSINOPHILS 3.5 % (0-7); HEMATOCRIT 29.5 % (36.0-48.0); HEMOGLOBIN 9.2 g/dL (12-16); LYMPHOCYTES 24.3 % (15-50); MCH 31.5 pg (26.0-34.0); MCHC 31.2 g/dL (31.0-37.0); MEAN PLATELET VOLUME 11.6 fL (7.4-10.4); MONOCYTES 13.5 % (2-11); NEUTROPHILS 57.6 % (40-80); PLATELET COUNT 50 10x3/uL (130-400); RBC 2.92 10x6/uL (4.00-5.40); RDW 19.5 % (11.5-14.5); WBC 3.7 10x3/uL (4.8-10.8)
[2017-05-22 05:22] LABS: CALC OSMOLALITY 286 mosm/kg (275-300); CALCIUM 8.2 mg/dL (8.5-10.1); CARBON DIOXIDE 34.6 mmol/L (21.0-32.0); CHLORIDE - SERUM 102 mmol/L (98-107); CREATININE - SERUM 0.8 mg/dL (0.6-1.3); GLUCOSE 175 mg/dL (74-106); POTASSIUM - SERUM 3.8 mmol/L (3.5-5.1); SODIUM 141 mmol/L (136-145); UREA NITROGEN 17 mg/dL (7-18); eGFR NON AFRICAN AMERICAN 76 mL/min (90-120)
--- NOTE | 2017-05-22 07:30 | NUR ---
RECIEVED PT DURING WALKING ROUNDS. PT RESTING IN BED WITH COMPLAINTS OF PAIN OF 6 ON A SCALE OF 1-10. PAIN MEDICATION TO BE GIVEN PER ORDER. ASSESSMENT DONE PER FLOWSHEET. BED IN LOW POSITION AND CALL LIGHT WITHIN REACH. WILL CONTINUE TO MONITOR.
[2017-05-22 08:25] VITALS: BP 128/48
--- NOTE | 2017-05-22 08:52 | NUR ---
CM SPOKE WITH PATIENT ABOUT HH AGAIN AND PATIENT HAS [facility] REFERRAL WILL BE SENT. IMM SERVED. PATIENT ALSO STATED THAT HER O2 HAS BEEN DELIVERED TO HER HOME. CM WILL CONTINUE TO FOLLOW AND ASSIST WITH DISCHARGE PLANNING NEEDS
[2017-05-22 11:52] LABS: APPEARANCE CLEAR (CLEAR); BILIRUBIN NEGATIVE (NEGATIVE); COLOR YELLOW (YELLOW); EPITHELIAL CELLS OCC /hpf (0-5); GLUCOSE NEGATIVE (NEGATIVE); KETONE NEGATIVE (NEGATIVE); MUCUS <1+ /lpf (NONE SEEN); NITRITE NEGATIVE (NEGATIVE); PROTEIN NEGATIVE (NEGATIVE); UROBILINOGEN NORMAL (NORMAL); WHITE CELLS - URINE OCC /hpf (0-5); YEAST <1+ /hpf (NONE SEEN)
[2017-05-22 11:53] VITALS: BP 111/40
[2017-05-22 11:53] LABS: BACTERIA FEW /hpf (NONE SEEN); HYALINE CAST 0-5 /lpf (NONE SEEN)
--- NOTE | 2017-05-22 12:08 | NUR ---
NUTRITION F/U CHART REVIEWED, TOLERATING ADA DIET. 100% INTAKE RECENT MEALS. NOTE DC PLANNING. RD FOLLOWING
[2017-05-22] MEDS ORDERED: Zaroxolyn PO (13:16)
[2017-05-22] MEDS ORDERED: XIFAXAN550 MG PO (13:16)
[2017-05-22] MEDS ORDERED: MUCINEX DM ER1 EAC1 PO (13:17)
[2017-05-22] MEDS ORDERED: K-TAB10 MEQ PO (13:17)
[2017-05-22] MEDS ORDERED: BENZONATATE200 MG PO (13:17)
[2017-05-22] MEDS ORDERED: FLORAJEN3 CAPS460 MG PO (13:18)
[2017-05-22] MEDS ORDERED: SYNTHROID50 MCG PO (13:18)
[2017-05-22] MEDS ORDERED: GLUCOTROL 5 MG T5 MG PO (13:18)
[2017-05-22] MEDS ORDERED: GLUCOPHAGE500 MG PO (13:19)
[2017-05-22] MEDS ORDERED: HYDROCODON-ACE1 EAC7 PO (13:19)
[2017-05-22] MEDS ORDERED: BUMEX 1 MG TAB1 MG PO (13:21)
--- NOTE | 2017-05-22 14:06 | NUR ---
[facility] IS ON DEVERSION, PATIENT AWARE. REFERRAL SENT TO [facility] SPOKE WITH DANIE
--- NOTE | 2017-05-22 15:33 | NUR ---
PORT DEACCESSED PER PROTOCOL. PT DISCHARGED VIA WHEELCHAIR TO HOME WITH A FAMILY MEMBER.
[2017-06-07 12:16] LABS: FUNGUS MYCOLOGY CULTURE Final report (())
[2017-07-06 10:18] LABS: ACID FAST CULTURE Negative (()); ACID FAST SMEAR Negative (())
== END 2017-05-22 15:35 | disposition home health service (06) | DRG 871 ==
LOC: D.ER 21:39 → D.ICU 05-06 01:25 → D.MS 05-12 20:00
PROVIDERS: Emergency Medicine; General Practice; Internal Medicine Gastroenterology; Internal Medicine Hematology & Oncology; Internal Medicine Pulmonary Disease; Radiology Diagnostic Radiology; Specialist; ADMIT Family Medicine
PROC: 0T9B70Z Drainage of Bladder with Drainage Device, Via Natural or Artificial Opening (ICD-10-PCS; principal; 2017-05-06)
PROC: 0W993ZZ Drainage of Right Pleural Cavity, Percutaneous Approach (ICD-10-PCS; 2017-05-11)
PROC: 0W9930Z Drainage of Right Pleural Cavity with Drainage Device, Percutaneous Approach (ICD-10-PCS; 2017-05-21)
DX: A40.9 Streptococcal sepsis, unspecified (principal); J96.01 Acute respiratory failure with hypoxia; J69.0 Pneumonitis due to inhalation of food and vomit; Z68.41 Body mass index [BMI] 40.0-44.9, adult; K76.6 Portal hypertension; J98.11 Atelectasis; D61.818 Other pancytopenia; C18.9 Malignant neoplasm of colon, unspecified; C78.00 Secondary malignant neoplasm of unspecified lung; N17.9 Acute kidney failure, unspecified; J91.0 Malignant pleural effusion; K72.90 Hepatic failure, unspecified without coma; K75.81 Nonalcoholic steatohepatitis (NASH); E03.9 Hypothyroidism, unspecified; E66.01 Morbid (severe) obesity due to excess calories; E11.40 Type 2 diabetes mellitus with diabetic neuropathy, unspecified; N95.9 Unspecified menopausal and perimenopausal disorder; G47.33 Obstructive sleep apnea (adult) (pediatric); I10 Essential (primary) hypertension; E86.0 Dehydration; K52.9 Noninfective gastroenteritis and colitis, unspecified; D70.1 Agranulocytosis secondary to cancer chemotherapy

== ENCOUNTER → 2017-05-28 13:21 | Outpatient (CLI) | payer MEDICARE, BC ==
[2017-05-07 10:47] VITALS: BMI 43.4
[~2017-05-28 13:21] MED LIST changes: +BENZONATATE200 MG PO; +BUMEX 1 MG TAB1 MG PO; +FLORAJEN3 CAPS460 MG PO; +HYDROCODON-ACE1 EAC7 PO; +K-TAB10 MEQ PO; +MUCINEX DM ER1 EAC1 PO; +SYNTHROID50 MCG PO; +XIFAXAN550 MG PO; +Zaroxolyn PO
[2017-05-28 14:08] LABS: BASOPHILS 0.3 % (0-2); EOSINOPHILS 4.1 % (0-7); HEMATOCRIT 34.5 % (36.0-48.0); HEMOGLOBIN 11.2 g/dL (12-16); LYMPHOCYTES 29.7 % (15-50); MCH 31.2 pg (26.0-34.0); MCHC 32.5 g/dL (31.0-37.0); MCV 96.1 fL (80.0-100.0); MONOCYTES 16.9 % (2-11); RBC 3.59 10x6/uL (4.00-5.40); RDW 18.9 % (11.5-14.5); WBC 3.2 10x3/uL (4.8-10.8)
[2017-05-28 14:19] LABS: PLATELET COUNT 63 10x3/uL (130-400)
[2017-05-28 14:22] LABS: CALC OSMOLALITY 269 mosm/kg (275-300); CARBON DIOXIDE 34.5 mmol/L (21.0-32.0); CHLORIDE - SERUM 95 mmol/L (98-107); CREATININE - SERUM 0.8 mg/dL (0.6-1.3); POTASSIUM - SERUM 3.7 mmol/L (3.5-5.1); SODIUM 135 mmol/L (136-145); UREA NITROGEN 13 mg/dL (7-18); eGFR NON AFRICAN AMERICAN 76 mL/min (90-120)
[2017-05-28 14:25] LABS: GLUCOSE 90 mg/dL (74-106)
== END | disposition home or self-care (01) ==
LOC: D.LABREF 13:21
PROVIDERS: Internal Medicine Medical Oncology
DX: A41.9 Sepsis, unspecified organism (principal)

== ENCOUNTER → 2017-07-18 08:16 | Outpatient (CLI) | payer MEDICARE, BC ==
[2017-05-07 10:47] VITALS: BMI 43.4
== END | disposition home or self-care (01) ==
LOC: D.RAD 08:15
DX: C18.3 Malignant neoplasm of hepatic flexure (principal)

== ENCOUNTER → 2017-08-20 13:30 | Outpatient (CLI) | payer MEDICARE, BC ==
[2017-05-07 10:47] VITALS: BMI 43.4
== END | disposition home or self-care (01) ==
LOC: D.CT 13:30
DX: C18.3 Malignant neoplasm of hepatic flexure (principal); C78.7 Secondary malignant neoplasm of liver and intrahepatic bile duct; D72.819 Decreased white blood cell count, unspecified; D69.6 Thrombocytopenia, unspecified; C78.01 Secondary malignant neoplasm of right lung

== ENCOUNTER → 2017-11-27 09:16 | Outpatient (CLI) | payer MEDICARE, BC ==
[2017-05-07 10:47] VITALS: BMI 43.4
== END | disposition home or self-care (01) ==
LOC: D.CT 11-23 08:00
DX: C18.3 Malignant neoplasm of hepatic flexure (principal); D72.819 Decreased white blood cell count, unspecified; D69.6 Thrombocytopenia, unspecified; C78.01 Secondary malignant neoplasm of right lung